=== PATIENT | male | born 1940 | race Caucasian/White ===

== ENCOUNTER 2016-05-02 16:26 | Emergency (ER) | payer MEDICARE, OTHER ==
[~2016-05-02] VITALS: Ht 180.3 cm; Wt 77.1 kg
[~2016-05-02 16:26] MED LIST: CALC1CAP13 PO; CHOL100011 PO; VITA1TAB19 PO; [UNRECOGNIZED DRUG - CODE] PO; [UNRECOGNIZED DRUG - REMARK]
--- NOTE | 2016-05-02 16:54 | NUR ---
ARRIVAL PT ARRIVED AMBULATORY TO ER 7 C/O COUGH THAT BEGAN LAST NIGHT. PT STATES HAD BRONCHITIS A FEW WEEKS AGO. NO ACUTE DISTRESS NOTED. EDP NOTIFIED OF PT ARRIVAL.
--- NOTE | 2016-05-02 17:10 | ER.PDOC ---
General Chief Complaint: Cough/Congestion Stated Complaint: COUGH Time seen by MD: 17:08 Source: patient Exam Limitations: no limitations History of Present Illness Initial Comments Cough for 2 days Timing/Duration: abrupt Severity: moderate Associated Symptoms: cough Prior symptoms/Treatment: Similar symptoms previous Recenly Seen Treated by Doctor Allergies: Coded Allergies: No Known Allergies (Unverified , 03/25/13) Home Meds Reported Medications Calcium/Mag Oxide/Vitamin D3 (Coral Calcium 1,000 Mg Cap)1 Each Capsule1 Each PO 12/17/13 Cholecalciferol (Vitamin D3) (Vitamin D)1,000 Unit Capsule1 Cap PO DAILY #30 CAP Ref 3 12/17/13 Vitamin B Complex (B Complex)1 Each Tablet1 Each PO DAILY 12/17/13 [honeyand vinegar] No Conflict Check1 Daily 12/17/13 Multivitamin W/Iron, Minerals ([facility])1 Each Tablet1 Each PO DAILY 12/17/13 Constitutional: no symptoms reported Respiratory: see HPI Cardiovascular: no symptoms reported Gastrointestinal: no symptoms reported Genitourinary: no symptoms reported Musculoskeletal: no symptoms reported Skin: no symptoms reported All Other Systems: Reviewed and Negative Past Medical History Medical History: COPD Surgical History: no surgical history Social History Smoking: non-smoker, quit greater than 1 year Alcohol Use: none Drug Use: none Physical Exam General Appearance: alert, no distress Nose: nose nml Throat: pharynx nml, airway nml Neck: nml inspection, supple Respiratory: no resp.distress, breath sounds nml Abdomen: non-tender, no organomegaly CVS: reg rate & rhythm, heart sounds nml Skin: color nml, no rash, warm/dry Extremities: non-tender, nml ROM, no pedal edema NEURO/PSYCH: oriented x 3, CN's nml as tested, motor nml, sensation nml, mood/ affect nml Departure Time of Disposition: 17:08 Impression: Primary Impression: Acute bronchitis Qualified Code: J20.9 - Acute bronchitis, unspecified Condition: Stable Referrals: PIPER TALAVERA (PCP) PRIMARY CARE PROVIDER Additional Instructions: Z pack Prednisone Mucinex DM OTC as directed Continue breathing treatments at home F/U with your PCP in 3-4 days MARIBEL MORA MD May 02, 2016 17:10
[2016-05-02 17:44] VITALS: BP 157/106
== END 2016-05-02 17:31 ==
LOC: ER 16:26
DX: J20.9 Acute bronchitis, unspecified (principal); J44.9 Chronic obstructive pulmonary disease, unspecified; Z87.891 Personal history of nicotine dependence; Z79.899 Other long term (current) drug therapy
CPT/HCPCS: 99283

== ENCOUNTER 2016-11-21 09:54 | Emergency (ER) | payer MEDICARE, OTHER ==
[~2016-11-21] VITALS: Ht 170.2 cm; Wt 74.8 kg
[2016-11-21 10:12] VITALS: BP 136/68
--- NOTE | 2016-11-21 10:14 | NUR ---
ARRIVAL PATIENT ARRIVED TO ED3 AMBULATORY, C/O OF FEVER, COUGH AND CONGESTION FOR THE PAST 4 DAYS, STATES "I GET THIS EVERY YEAR AND COME TO THE ED BEFORE I GET PNEUMONIA". HAS SEEN DOCTOR ABBY IN THE PAST, HERE FOR FURTHER EVAL BY EDP.
--- NOTE | 2016-11-21 10:27 | ER.PDOC ---
General Chief Complaint: Cough/Congestion Stated Complaint: FEVER,COUGH/CONGESTION Time seen by MD: 10:25 Source: patient Exam Limitations: no limitations History of Present Illness Initial Comments Cough and congestion for 4 days Timing/Duration: abrupt Severity: moderate Associated Symptoms: runny nose, cough Prior symptoms/Treatment: Similar symptoms previous Allergies: Coded Allergies: No Known Allergies (Unverified , 03/25/13) Home Meds Reported Medications Calcium/Mag Oxide/Vitamin D3 (CORAL CALCIUM 1,000 MG CAP) 1 Each Capsule, 1 EACH PO, CAPSULE 12/17/13 Cholecalciferol (Vitamin D3) (VITAMIN D) 1,000 Unit Capsule, 1 CAP PO DAILY, # 30 CAP 3 Refills 12/17/13 Vitamin B Complex (B COMPLEX) 1 Each Tablet, 1 EACH PO DAILY, TABLET 12/17/13 [honeyand vinegar] No Conflict Check, 1 DAILY 12/17/13 Multivitamin W/Iron, Minerals ([facility]) 1 Each Tablet, 1 EACH PO DAILY, TABLET 12/17/13 Constitutional: no symptoms reported EENTM: see HPI Respiratory: see HPI Cardiovascular: no symptoms reported Gastrointestinal: no symptoms reported All Other Systems: Reviewed and Negative Past Medical History Medical History: no pertinent history Surgical History: no surgical history Social History Smoking: non-smoker Alcohol Use: other Drug Use: none Physical Exam General Appearance: alert, no distress Nose: nose nml Neck: nml inspection, supple Respiratory: no resp.distress, breath sounds nml Abdomen: non-tender, no organomegaly CVS: reg rate & rhythm, heart sounds nml Skin: color nml, no rash, warm/dry Extremities: non-tender, nml ROM, no pedal edema NEURO/PSYCH: oriented x 3, CN's nml as tested, motor nml, sensation nml, mood/ affect nml Departure Time of Disposition: 10:26 Disposition: 01 HOME, SELF-CARE Impression: Primary Impression: Acute bronchitis Qualified Codes: J20.9 - Acute bronchitis, unspecified Condition: Stable Referrals: PIPER TALAVERA (PCP) PRIMARY CARE PROVIDER Additional Instructions: Z pack Medrol dose pack Mucinex DM OTC as directed F/U with your PCP next week MARIBEL MORA MD Nov 21, 2016 10:27
== END 2016-11-21 10:32 | disposition home or self-care (01) ==
LOC: ER 09:54
DX: J20.9 Acute bronchitis, unspecified (principal); Z79.899 Other long term (current) drug therapy
CPT/HCPCS: 99283

== ENCOUNTER 2017-12-16 07:56 | Emergency (ER) | payer MEDICARE, OTHER ==
[~2017-12-16] VITALS: Ht 180.3 cm; Wt 77.1 kg
--- NOTE | 2017-12-16 08:03 | ER.PDOC ---
General Chief Complaint: Requesting Medical Care Stated Complaint: UPPER RESP Time seen by MD: 08:03 Source: patient Exam Limitations: no limitations History of Present Illness Initial Comments Pt started with cough and phlegm, six days ago, no better Timing/Duration: gradual Severity: mild Associated Symptoms: cough, productive cough, mild SOB Allergies: Coded Allergies: No Known Allergies (Unverified , 03/25/13) Home Meds Reported Medications Calcium/Mag Oxide/Vitamin D3 (CORAL CALCIUM 1,000 MG CAP) 1 Each Capsule, 1 EACH PO, CAPSULE 12/17/13 Cholecalciferol (Vitamin D3) (VITAMIN D) 1,000 Unit Capsule, 1 CAP PO DAILY, # 30 CAP 3 Refills 12/17/13 Vitamin B Complex (B COMPLEX) 1 Each Tablet, 1 EACH PO DAILY, TABLET 12/17/13 [honeyand vinegar] No Conflict Check, 1 DAILY 12/17/13 Multivitamin W/Iron, Minerals ([facility]) 1 Each Tablet, 1 EACH PO DAILY, TABLET 12/17/13 Constitutional: no symptoms reported EENTM: no symptoms reported Respiratory: see HPI Cardiovascular: no symptoms reported Gastrointestinal: no symptoms reported Genitourinary: no symptoms reported Musculoskeletal: no symptoms reported Skin: no symptoms reported Psychiatric/Neurological: no symptoms reported Endocrine: no symptoms reported Hematologic/Lymphatic: no symptoms reported Past Medical History Surgical History: no surgical history Social History Drug Use: none Physical Exam General Appearance: alert, no distress Eye: eyes nml inspection, lids & conjunct. nml, PERRL, no nystagmus Ear: ear nml Nose: nose nml Throat: pharynx nml, airway nml Neck: nml inspection, supple Respiratory: rhonchi (bilaterally) Abdomen: non-tender, no organomegaly CVS: reg rate & rhythm, heart sounds nml Skin: color nml, no rash, warm/dry Extremities: non-tender, nml ROM, no pedal edema NEURO/PSYCH: oriented x 3, CN's nml as tested, motor nml, sensation nml, mood/ affect nml Departure Time of Disposition: 08:32 Disposition: 01 HOME, SELF-CARE Impression: Primary Impression: Acute bronchitis Condition: Stable Referrals: PIPER TALAVERA (PCP) PRIMARY CARE PROVIDER Duration or Time Spent with Pa: MARC KLEIN MD Dec 16, 2017 08:03
[2017-12-16 08:15] VITALS: BP 170/117
[2017-12-16 08:39] VITALS: BP 162/105
[2017-12-16 08:45] VITALS: BP 162/105
== END 2017-12-16 08:41 | disposition home or self-care (01) ==
LOC: ER 07:56
DX: J20.9 Acute bronchitis, unspecified (principal); Z79.899 Other long term (current) drug therapy
CPT/HCPCS: 99283

== ENCOUNTER 2018-06-30 08:53 | Emergency (ER) | payer MEDICARE ==
[~2018-06-30] VITALS: Ht 180.3 cm; Wt 81.6 kg
--- NOTE | 2018-06-30 08:59 | NUR ---
ARRIVAL PT C/O COUGH, CONGESTION, LOW GRADE TEMP X2 DAYS. TAKING MUCCINEX AT HOME. BEDSIDE MONITOR ON, REPORT GIVEN.
[2018-06-30 09:07] VITALS: BP 168/83
--- NOTE | 2018-06-30 09:14 | ER.PDOC ---
General Chief Complaint: Cough/Congestion Stated Complaint: BRONCHITIS Time seen by MD: 09:12 Source: patient Exam Limitations: no limitations History of Present Illness Initial Comments Cough and congestion for the past few days. Timing/Duration: gradual Severity: moderate Associated Symptoms: runny nose, cough Prior symptoms/Treatment: Similar symptoms previous Allergies: Coded Allergies: No Known Allergies (Unverified , 03/25/13) Home Meds Reported Medications Calcium/Mag Oxide/Vitamin D3 (CORAL CALCIUM 1,000 MG CAP) 1 Each Capsule, 1 EACH PO, CAPSULE 12/17/13 Cholecalciferol (Vitamin D3) (VITAMIN D) 1,000 Unit Capsule, 1 CAP PO DAILY, #30 CAP 3 Refills 12/17/13 Vitamin B Complex (B COMPLEX) 1 Each Tablet, 1 EACH PO DAILY, TABLET 12/17/13 [honeyand vinegar] No Conflict Check, 1 DAILY 12/17/13 Multivitamin W/Iron, Minerals ([facility]) 1 Each Tablet, 1 EACH PO DAILY, TABLET 12/17/13 Constitutional: no symptoms reported EENTM: see HPI Respiratory: see HPI Cardiovascular: no symptoms reported Gastrointestinal: no symptoms reported Genitourinary: no symptoms reported All Other Systems: Reviewed and Negative Past Medical History Medical History: other Surgical History: no surgical history Social History Smoking: cigarettes, less than 1 pack/day Alcohol Use: none Drug Use: none Physical Exam General Appearance: alert, no distress Nose: nose nml Throat: pharynx nml, airway nml Neck: nml inspection, supple Respiratory: no resp.distress, breath sounds nml Abdomen: non-tender, no organomegaly CVS: reg rate & rhythm, heart sounds nml Skin: color nml, no rash, warm/dry Extremities: non-tender, nml ROM, no pedal edema NEURO/PSYCH: oriented x 3, CN's nml as tested, motor nml, sensation nml, mood/affect nml Results/Orders Results/Orders Vital Signs Date Time Temp Pulse Resp B/P (MAP) Pulse Ox O2 Delivery O2 Flow Rate FiO2 06/30/18 09:07 98.0 69 14 168/83 (111) 95 Room Air 98.0 06/30/18 09:04 98.0 69 14 98.0 06/30/18 09:04 98.0 69 14 95 Room Air 98.0 Departure Time of Disposition: 09:13 Disposition: 01 HOME, SELF-CARE Impression: Primary Impression: Acute bronchitis Condition: Stable Referrals: PIPER TALAVERA (PCP) PRIMARY CARE PROVIDER Additional Instructions: Z pack Medrol dose pack Mucinex DM OTC as directed F/U with PCP in 1 week Duration or Time Spent with Pa: 30 mins Problem Qualifiers Primary Impression: Acute bronchitis Bronchitis organism: unspecified organism Qualified Codes: J20.9 - Acute bronchitis, unspecified MARIBEL MORA MD June 30, 2018 09:14
--- NOTE | 2018-06-30 09:27 | NUR ---
DISMISSAL PT DISCHARGED IN STABLE CONDITION.
[2018-06-30 09:39] VITALS: BP 168/83
== END 2018-06-30 09:27 | disposition home or self-care (01) ==
LOC: ER 08:53
DX: J20.9 Acute bronchitis, unspecified (principal); Z79.899 Other long term (current) drug therapy
CPT/HCPCS: 99283

== ENCOUNTER 2018-11-03 08:27 | Emergency (ER) | payer MEDICARE ==
[~2018-11-03] VITALS: Ht 182.9 cm; Wt 81.6 kg
[2018-11-03 08:44] VITALS: BP 151/80
--- NOTE | 2018-11-03 08:56 | ER.PDOC ---
General Chief Complaint: Cough/Congestion Stated Complaint: POSSIBLE BRONCHITIS Time seen by MD: 08:49 Source: patient Exam Limitations: no limitations History of Present Illness Initial Comments Cough with white expectoration, started yesterday, no fever, occasional SOB, no CP Timing/Duration: gradual Severity: mild Associated Symptoms: cough Worsen By: deep breathing Prior symptoms/Treatment: Similar symptoms previous Allergies: Coded Allergies: No Known Allergies (Unverified , 03/25/13) Home Meds Reported Medications Calcium/Mag Oxide/Vitamin D3 (CORAL CALCIUM 1,000 MG CAP) 1 Each Capsule, 1 EACH PO, CAPSULE 12/17/13 Cholecalciferol (Vitamin D3) (VITAMIN D) 1,000 Unit Capsule, 1 CAP PO DAILY, #30 CAP 3 Refills 12/17/13 Vitamin B Complex (B COMPLEX) 1 Each Tablet, 1 EACH PO DAILY, TABLET 12/17/13 [honeyand vinegar] No Conflict Check, 1 DAILY 12/17/13 Multivitamin W/Iron, Minerals ([facility]) 1 Each Tablet, 1 EACH PO DAILY, TABLET 12/17/13 Respiratory: see HPI All Other Systems: Reviewed and Negative Past Medical History Medical History: no pertinent history Surgical History: no surgical history Social History Smoking: non-smoker, quit greater than 1 year Alcohol Use: none Drug Use: none Physical Exam General Appearance: alert, no distress Eye: eyes nml inspection, lids & conjunct. nml, PERRL, no nystagmus Ear: ear nml Nose: nose nml Throat: pharynx nml, airway nml Neck: nml inspection, supple Respiratory: no resp.distress, rhonchi (scattered) Abdomen: non-tender, no organomegaly CVS: reg rate & rhythm, heart sounds nml Skin: color nml, no rash, warm/dry Extremities: non-tender, nml ROM, no pedal edema NEURO/PSYCH: oriented x 3, CN's nml as tested, motor nml, sensation nml, mood/affect nml Results/Orders Results/Orders Vital Signs Date Time Temp Pulse Resp B/P (MAP) Pulse Ox O2 Delivery O2 Flow Rate FiO2 11/03/18 08:44 97.8 65 16 11/03/18 08:44 97.8 65 17 151/80 (103) 96 Room Air 11/03/18 08:37 97.8 65 17 96 Room Air Departure Time of Disposition: 08:56 Disposition: 01 HOME, SELF-CARE Impression: Primary Impression: Acute bronchitis Condition: Stable Patient Instructions: Bronchitis, [id number] Referrals: PIPER TALAVERA (PCP) PRIMARY CARE PROVIDER Duration or Time Spent with Pa: 10 MARC ROSS MD Nov 03, 2018 08:56
== END 2018-11-03 09:03 | disposition home or self-care (01) ==
LOC: ER 08:27
DX: J20.9 Acute bronchitis, unspecified (principal); Z79.899 Other long term (current) drug therapy; Z87.891 Personal history of nicotine dependence
CPT/HCPCS: 99283

== ENCOUNTER 2018-12-19 08:30 | Emergency (ER) | payer MEDICARE ==
[~2018-12-19] VITALS: Ht 180.3 cm; Wt 81.6 kg
[2018-12-19 08:46] VITALS: BP 176/79
--- NOTE | 2018-12-19 08:47 | ER.PDOC ---
General Chief Complaint: Requesting Medical Care Stated Complaint: POSSIBLE BRONCHITIS Time seen by MD: 08:40 Source: patient Exam Limitations: no limitations History of Present Illness Initial Comments Pt attended a concert where there was smoking, started with cough and white expectoration 1 week ago Timing/Duration: gradual Severity: moderate Associated Symptoms: cough, productive cough, mild SOB Allergies: Coded Allergies: No Known Allergies (Unverified , 03/25/13) Home Meds Reported Medications Calcium/Mag Oxide/Vitamin D3 (CORAL CALCIUM 1,000 MG CAP) 1 Each Capsule, 1 EACH PO, CAPSULE 12/17/13 Cholecalciferol (Vitamin D3) (VITAMIN D) 1,000 Unit Capsule, 1 CAP PO DAILY, #30 CAP 3 Refills 12/17/13 Vitamin B Complex (B COMPLEX) 1 Each Tablet, 1 EACH PO DAILY, TABLET 12/17/13 [honeyand vinegar] No Conflict Check, 1 DAILY 12/17/13 Multivitamin W/Iron, Minerals ([facility]) 1 Each Tablet, 1 EACH PO DAILY, TABLET 12/17/13 Respiratory: see HPI All Other Systems: Reviewed and Negative Past Medical History Medical History: no pertinent history Surgical History: no surgical history Social History Drug Use: none Physical Exam General Appearance: alert, no distress Eye: eyes nml inspection, lids & conjunct. nml, PERRL, no nystagmus Ear: ear nml Nose: nose nml Throat: pharynx nml, airway nml Neck: nml inspection, supple Respiratory: no resp.distress, breath sounds nml Abdomen: non-tender, no organomegaly CVS: reg rate & rhythm, heart sounds nml Skin: color nml, no rash, warm/dry Extremities: non-tender, nml ROM, no pedal edema NEURO/PSYCH: oriented x 3, CN's nml as tested, motor nml, sensation nml, mood/affect nml Departure Time of Disposition: 08:49 Disposition: 01 HOME, SELF-CARE Impression: Primary Impression: Acute bronchitis Condition: Stable Patient Instructions: Acute Bronchitis, [id number] Referrals: PIPER TALAVERA (PCP) PRIMARY CARE PROVIDER Duration or Time Spent with Pa: MARC SULLIVAN MD Dec 19, 2018 08:47
== END 2018-12-19 08:53 | disposition home or self-care (01) ==
LOC: ER 08:30
DX: J20.9 Acute bronchitis, unspecified (principal); Z79.899 Other long term (current) drug therapy
CPT/HCPCS: 99283

== ENCOUNTER 2019-12-28 08:47 | Emergency (ER) | payer MEDICARE ==
[~2019-12-28] VITALS: Ht 180.3 cm; Wt 81.6 kg
[2019-12-28 09:02] VITALS: BP 163/61
--- NOTE | 2019-12-28 09:09 | ER.PDOC ---
General Chief Complaint: Requesting Medical Care Stated Complaint: COUGH/CONGESTION Time seen by MD: 09:02 Source: patient Exam Limitations: no limitations History of Present Illness Initial Comments Mr. Jorge c/o cough/congestion x 2 days. He states he gets bronchitis every year and Zpak + steroids always knocks it out. He as covid tested yesterday and it was negative. He denies SOB or fever. Timing/Duration: gradual Severity: mild Associated Symptoms: cough Prior symptoms/Treatment: Similar symptoms previous (bronchitis yearly) Allergies: Coded Allergies: No Known Allergies (Unverified , 03/25/13) Home Meds Reported Medications Calcium/Mag Oxide/Vitamin D3 (CORAL CALCIUM 1,000 MG CAP) 1 Each Capsule, 1 EACH PO, CAPSULE 12/17/13 Cholecalciferol (Vitamin D3) (VITAMIN D) 1,000 Unit Capsule, 1 CAP PO DAILY, #30 CAP 3 Refills 12/17/13 Vitamin B Complex (B COMPLEX) 1 Each Tablet, 1 EACH PO DAILY, TABLET 12/17/13 [honeyand vinegar] No Conflict Check, 1 DAILY 12/17/13 Multivitamin W/Iron, Minerals ([facility]) 1 Each Tablet, 1 EACH PO DAILY, TABLET 12/17/13 Constitutional: no symptoms reported EENTM: no symptoms reported Respiratory: cough Cardiovascular: no symptoms reported Gastrointestinal: no symptoms reported Genitourinary: no symptoms reported Musculoskeletal: no symptoms reported Skin: no symptoms reported Psychiatric/Neurological: no symptoms reported All Other Systems: Reviewed and Negative Past Medical History Medical History: no pertinent history Surgical History: no surgical history Family History Significant Family History: no pertinent family hx Social History Smoking: cigarettes (1 pack per 2 months) Alcohol Use: none Drug Use: none Physical Exam General Appearance: alert, no distress Eye: eyes nml inspection, lids & conjunct. nml, PERRL, no nystagmus Respiratory: no resp.distress, breath sounds nml Abdomen: non-tender, no organomegaly CVS: reg rate & rhythm, heart sounds nml Skin: color nml, no rash, warm/dry Extremities: non-tender, nml ROM, no pedal edema NEURO/PSYCH: oriented x 3, motor nml ER DEPART Departure Time of Disposition: 09:12 Disposition: 01 HOME, SELF-CARE Impression: Primary Impression: Acute bronchitis Condition: Stable Patient Instructions: Acute Bronchitis Referrals: PIPER TALAVERA (PCP) PRIMARY CARE PROVIDER Additional Instructions: Return to ER if you experience any difficulty breathing or swallowing, or for any emergent concerns. Take antibiotics and steroids as prescribed until all gone. Follow up with your doctor next week for reevaluation. Duration or Time Spent with Pa: 20 min Problem Qualifiers Primary Impression: Acute bronchitis Bronchitis organism: unspecified organism Qualified Codes: J20.9 - Acute bronchitis, unspecified WILFRIDO MIRANDA DO Dec 28, 2019 09:09
[2019-12-28 09:21] VITALS: BP 142/80
== END 2019-12-28 09:24 | disposition home or self-care (01) ==
LOC: ER 08:47
DX: J20.9 Acute bronchitis, unspecified (principal); F17.210 Nicotine dependence, cigarettes, uncomplicated; Z79.899 Other long term (current) drug therapy
CPT/HCPCS: 99283

== ENCOUNTER 2020-05-16 08:51 | Emergency (ER) | payer MEDICARE ==
[~2020-05-16] VITALS: Ht 175.3 cm; Wt 86.2 kg
[2020-05-16 09:05] VITALS: BP 152/75
[2020-05-16 09:15] VITALS: BP 152/75
[2020-05-16] MEDS: DECADRON IH STA (09:22)
[2020-05-16] MEDS: DUO 0.5-3(2.5) MG/3 ML IH STA (09:22)
[2020-05-16] MEDS ORDERED: DUO 0.5-3(2.5) MG/3 ML IH ONE (09:23)
[2020-05-16] MEDS ORDERED: DECADRON ONE (09:23)
--- NOTE | 2020-05-16 09:26 | ER.PDOC ---
General Chief Complaint: Cough/Congestion Stated Complaint: COUGH/CONGESTION Time seen by MD: 09:23 Source: patient Exam Limitations: no limitations History of Present Illness Initial Comments Cough and chest congestion for 3 days. No fever or chills. Patient is prone to having bronchitis. He tells me that he is having 1 of such episodes. No chest pain or shortness of breath. Timing/Duration: gradual Severity: moderate Associated Symptoms: cough Prior symptoms/Treatment: Similar symptoms previous, Recenly Seen, Treated by Doctor Allergies: Coded Allergies: No Known Allergies (Unverified , 03/25/13) Home Meds Reported Medications Calcium/Mag Oxide/Vitamin D3 (CORAL CALCIUM 1,000 MG CAP) 1 Each Capsule, 1 EACH PO, CAPSULE 12/17/13 Cholecalciferol (Vitamin D3) (VITAMIN D) 1,000 Unit Capsule, 1 CAP PO DAILY, #30 CAP 3 Refills 12/17/13 Vitamin B Complex (B COMPLEX) 1 Each Tablet, 1 EACH PO DAILY, TABLET 12/17/13 [honeyand vinegar] No Conflict Check, 1 DAILY 12/17/13 Multivitamin W/Iron, Minerals ([facility]) 1 Each Tablet, 1 EACH PO DAILY, TABLET 12/17/13 Constitutional: no symptoms reported EENTM: no symptoms reported Respiratory: see HPI Cardiovascular: no symptoms reported Gastrointestinal: no symptoms reported Genitourinary: no symptoms reported All Other Systems: Reviewed and Negative Past Medical History Medical History: hypertension Surgical History: no surgical history Family History Significant Family History: no pertinent family hx Social History Alcohol Use: none Drug Use: none Physical Exam General Appearance: alert, no distress Nose: nose nml Throat: pharynx nml, airway nml Neck: nml inspection, supple Respiratory: no resp.distress, wheezes Abdomen: non-tender, no organomegaly CVS: reg rate & rhythm, heart sounds nml Skin: color nml, no rash, warm/dry Extremities: non-tender, nml ROM, no pedal edema NEURO/PSYCH: oriented x 3, CN's nml as tested, motor nml, sensation nml, mood/affect nml Results/Orders Results/Orders Vital Signs Date Time Temp Pulse Resp B/P (MAP) Pulse Ox O2 Delivery O2 Flow Rate FiO2 05/16/20 09:15 98.1 87 18 152/75 (100) 97 Room Air 05/16/20 09:05 98.1 87 18 97 05/16/20 09:05 98.1 87 18 Progress Progress Wheezes resolved after patient had a breathing treatment. He is feeling better to go home. ER DEPART Departure Time of Disposition: 09:25 Disposition: 01 HOME, SELF-CARE Impression: Primary Impression: Acute bronchitis Condition: Improved Referrals: PIPER TALAVERA (PCP) PRIMARY CARE PROVIDER Additional Instructions: Z-Germain Medrol Dosepak Continue with a breathing treatment at home Follow-up with your PCP in 1 week Return to ED if worsening symptoms or concerns Duration or Time Spent with Pa: 20 min Problem Qualifiers Primary Impression: Acute bronchitis Bronchitis organism: unspecified organism Qualified Codes: J20.9 - Acute bronchitis, unspecified MARIBEL MORA MD May 16, 2020 09:26
[2020-05-16] MEDS ORDERED: WATER 20 ML ONE (09:27)
[2020-05-16] MEDS ORDERED: SOLU-MEDROL ONE (09:27)
[2020-05-16] MEDS: SOLU-MEDROL IM STA (09:30)
== END 2020-05-16 09:36 | disposition home or self-care (01) ==
LOC: ER 08:51
DX: J20.9 Acute bronchitis, unspecified (principal); I10 Essential (primary) hypertension
CPT/HCPCS: 94640; 96372; 99283; J1100; J2930; J7620; A4216

== ENCOUNTER 2020-06-24 11:27 | Emergency (ER) | payer OTHER, MEDICARE ==
[~2020-06-24] VITALS: Ht 180.3 cm; Wt 83.9 kg
--- NOTE | 2020-06-24 11:33 | NUR ---
ARRIVAL PT ARRIVED TO ED WITH C/O NECK PAIN AND DIZZINESS WHEN BENDING OVER SINCE WEDNESDAY. PT STATES WHILE CLOSING THE DUMPSTER LID ON WEDNESDAY THE WIND CAUGHT IT JERKING PTS ARM AND NECK. BEDSIDE MONITORS APPLIED. VITAL SIGNS STABLE. BED IN LOW LOCKED POSITION.
[2020-06-24 11:38] VITALS: BP 159/86
[2020-06-24] MEDS ORDERED: ANTIVERT PO STA (11:43)
[2020-06-24] MEDS ORDERED: ANTIVERT ONE (11:49)
--- NOTE | 2020-06-24 11:52 | ER.PDOC ---
General Chief Complaint: Neck/Upper back Pain Stated Complaint: DIZZINESS Time seen by MD: 11:11 Source: patient Exam Limitations: no limitations History of Present Illness Initial Comments OCCURED AFTER A JERKY MOVEMENT YESTERDAY Occurred: just prior to arrival, yesterday Severity: mild Associated Symptoms: sense of movement, spinning Decreased Ability to Stand: off balance Usually: walks w/o assistance Worsened By: changing position, movement of head, standing postion Allergies: Coded Allergies: No Known Allergies (Unverified , 03/25/13) Home Meds Reported Medications Calcium/Mag Oxide/Vitamin D3 (CORAL CALCIUM 1,000 MG CAP) 1 Each Capsule, 1 EACH PO, CAPSULE 12/17/13 Cholecalciferol (Vitamin D3) (VITAMIN D) 1,000 Unit Capsule, 1 CAP PO DAILY, #30 CAP 3 Refills 12/17/13 Vitamin B Complex (B COMPLEX) 1 Each Tablet, 1 EACH PO DAILY, TABLET 12/17/13 [honeyand vinegar] No Conflict Check, 1 DAILY 12/17/13 Multivitamin W/Iron, Minerals ([facility]) 1 Each Tablet, 1 EACH PO DAILY, TABLET 12/17/13 Past Medical History Medical History: hypertension Surgical History: no surgical history Social History Alcohol Use: none Drug Use: none Reviewed Nursing Reviewed: Vital Signs, Abn. Noted Review of Systems All Other Systems: Reviewed and Negative Physical Exam General Appearance: alert, no distress EENT: nml eye inspection, PERRL, no nystagmus, nml ENT inspection, pharynx nml, TM's nml Neck: supple Respiratory: no resp distress, breath sounds nml CVS: reg rate & rhythm, heart sounds.nml Abdomen: non-tender, no organomegaly, no distention Skin: color nml, no rash, warm/dry Extremities: non-tender, nml ROM, no pedal edema Neuro/Psych: nml orientation, nml speech/cognition, nml mood/affect Cranial Nerves: nml as tested, no evidence of acute CVA Cerebellar: nml as tested Sensorimotor: nml motor, nml sensation Results/Orders Results/Orders Orders - LASHAWN MORALES MD Ekg-Routine (06/24/20 11:43) Meclizine Hcl (Antivert) (06/24/20 11:43) Vital Signs Date Time Temp Pulse Resp B/P (MAP) Pulse Ox O2 Delivery O2 Flow Rate FiO2 06/24/20 11:38 97.9 85 18 159/86 (110) 97 Room Air 06/24/20 11:38 97.9 85 18 97 06/24/20 11:38 97.9 85 18 ER DEPART Departure Time of Disposition: 11:55 Disposition: 01 HOME, SELF-CARE Impression: Primary Impression: BPPV (benign paroxysmal positional vertigo) Condition: Improved Referrals: PIPER TALAVERA (PCP) PRIMARY CARE PROVIDER Duration or Time Spent with Pa: KevanM LASHAWN MORALES MD June 24, 2020 11:51
--- NOTE | 2020-06-24 12:05 | PCM.EKG ---
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
== END 2020-06-24 12:13 | disposition home or self-care (01) ==
LOC: ER 11:27
DX: H81.10 Benign paroxysmal vertigo, unspecified ear (principal); I10 Essential (primary) hypertension
CPT/HCPCS: 93005; 99283; J8597

== ENCOUNTER 2021-01-21 11:21 | Emergency (ER) | payer MEDICARE ==
[~2021-01-21] VITALS: Ht 180.3 cm; Wt 83.9 kg
[2021-01-21 11:47] VITALS: BP 156/71
--- NOTE | 2021-01-21 11:52 | NUR ---
ARRIVAL PATIENT ARRIVED TO ED4 AMBULATORY, C/O SHORTNESS OF BREATH FOR THE PAST 2 DAYS, DYSPNEA CONTINUES AND PATIENT DECIDED TO COME TO THE ED FOR EVAL, VITAL SIGNS OBTAINED AND DOCTOR DAVEY TO THE TO SEE PATIENT.
--- NOTE | 2021-01-21 11:57 | ER.PDOC ---
General Chief Complaint: Dyspnea/Respdistress Stated Complaint: CONGESTED,SOB Time seen by MD: 11:49 Source: patient Exam Limitations: no limitations History of Present Illness Initial Comments This is an 80-year-old man who comes to the emergency department with "bronchitis". He states his symptoms started yesterday. He denies any fever, no body aches. He has had a prior history of bronchitis in the past. No loss of sense of taste or smell. Allergies: Coded Allergies: No Known Allergies (Unverified , 03/25/13) Home Meds Reported Medications Calcium/Mag Oxide/Vitamin D3 (CORAL CALCIUM 1,000 MG CAP) 1 Each Capsule, 1 EACH PO, CAPSULE 12/17/13 Cholecalciferol (Vitamin D3) (VITAMIN D) 1,000 Unit Capsule, 1 CAP PO DAILY, #30 CAP 3 Refills 12/17/13 Vitamin B Complex (B COMPLEX) 1 Each Tablet, 1 EACH PO DAILY, TABLET 12/17/13 [honeyand vinegar] No Conflict Check, 1 DAILY 12/17/13 Multivitamin W/Iron, Minerals (CENTRAL CRISTIAN FOR SENIORS) 1 Each Tablet, 1 EACH PO DAILY, TABLET 12/17/13 Constitutional: denies no symptoms reported, denies see HPI, denies chills, denies diaphoresis, denies fever, denies malaise, denies weakness, denies other EENTM: denies no symptoms reported, denies see HPI, denies eye pain, denies blurred vision, denies tearing, denies double vision, denies ear pain, denies ear discharge, denies nose pain, denies nose congestion, denies throat pain, denies throat swelling, denies mouth pain, denies mouth swelling, denies other Respiratory: denies no symptoms reported, denies see HPI, denies cough, denies orthopnea, denies shortness of breath, denies SOB with exertion, denies SOB at rest, denies stridor, denies wheezing, denies other Cardiovascular: denies no symptoms reported, denies see HPI, denies chest pain, denies edema, denies irregular heart rate, denies lightheadedness, denies palpitations, denies syncope, denies other Gastrointestinal: denies no symptoms reported, denies see HPI, denies abdomen distended, denies abdominal pain, denies blood streaked bowels, denies constipated, denies diarrhea, denies difficulty swallowing, denies nausea, denies poor appetite, denies poor fluid intake, denies rectal bleeding, denies vomiting, denies other Genitourinary: denies no symptoms reported, denies see HPI, denies burning, denies dysuria, denies discharge, denies frequency, denies flank pain, denies hematuria, denies incontinence, denies pain, denies urgency, denies other Musculoskeletal: denies no symptoms reported, denies see HPI, denies back pain, denies gout, denies joint pain, denies joint swelling, denies muscle pain, denies muscle stiffness, denies neck pain, denies other Skin: denies no symptoms reported, denies see HPI, denies change in color, denies change in hair/nails, denies dryness, denies lesions, denies lumps, denies rash, denies other Psychiatric/Neurological: denies no symptoms reported, denies see HPI, denies anxiety, denies depressed, denies emotional problems, denies headache, denies nu mbness, denies paresthesia, denies pre-existing deficit, denies seizure, denies tingling, denies tremors, denies weakness, denies other Endocrine: denies no symptoms reported, denies see HPI, denies excessive sweating, denies flushing, denies intolerance to cold, denies intolerance to heat, denies increased hunger, denies increased thrist, denies increased urine, denies unexplained weight gain, denies unexplaned weight loss, denies other Hematologic/Lymphatic: denies no symptoms reported, denies see HPI, denies anemia, denies blood clots, denies easy bleeding, denies easy bruising, denies swollen glands, denies other All Other Systems: Reviewed and Negative Past Medical History Medical History: hypertension Surgical History: no surgical history Social History Alcohol Use: none Drug Use: none Physical Exam General Appearance: alert, no distress Eye: eyes nml inspection, lids & conjunct. nml, PERRL, no nystagmus Ear: ear nml Nose: nose nml Throat: pharynx nml, airway nml Neck: nml inspection, supple Respiratory: no resp.distress, rales (Crackles in the bases bilaterally) Abdomen: non-tender, no organomegaly CVS: reg rate & rhythm, heart sounds nml Skin: color nml, no rash, warm/dry Extremities: non-tender, nml ROM, no pedal edema NEURO/PSYCH: oriented x 3, CN's nml as tested, motor nml, sensation nml, mood/affect nml Results/Orders Results/Orders Orders - RIRI MARISCAL MD Covid19 Antigen Keeley Farhana (01/21/21 11:52) Xr Chest 1v (01/21/21 11:52) Vital Signs Date Time Temp Pulse Resp B/P (MAP) Pulse Ox O2 Delivery O2 Flow Rate FiO2 01/21/21 11:47 99.5 99 18 01/21/21 11:47 99.5 99 18 90 01/21/21 11:47 99.5 99 18 156/71 (99) 90 Room Air Laboratory Tests Test 01/21/21 11:50 SARS-CoV-2 Antigen (Rapid) NEGATIVE (NEGATIVE) Progress Progress FINDINGS: LUNGS/PLEURA:Interstitial prominence throughout the bilateral hemithoraces may reflect senescent changes or underlying chronic lung disease such as COPD/emphysema. This is fairly similar to the previous study. No confluent airspace consolidation, pleural effusion or pneumothorax is identified. VASCULATURE:Normal. Unremarkable pulmonary vasculature. CARDIAC:Normal. No cardiac silhouette abnormality or cardiomegaly. MEDIASTINUM:Mediastinal contours appear within acceptable limits with calcifications of the aorta. BONES:Degenerative changes of the spine. OTHER:Negative. CONCLUSION: 1. Stable chest with senescent changes or potential underlying chronic lung disease such as COPD/emphysema. No superimposed acute cardiopulmonary abnormality is identified. Dictated by: George Shea M.D. On 01/21/2021 at 12:31 PM ER DEPART Departure Time of Disposition: 12:40 Disposition: 01 HOME / SELF CARE / HOMELESS Impression: Primary Impression: Bronchitis Condition: Stable Patient Instructions: Acute Bronchitis Referrals: PIPER TALAVERA (PCP) PRIMARY CARE PROVIDER Additional Instructions: Take medications as prescribed, return to the emergency department if you worsen in any way. Comments Prescription for azithromycin, prednisone, and an albuterol inhaler. Duration or Time Spent with Pa: Unknown RIRI MARISCAL MD Jan 21, 2021 11:56
--- NOTE | 2021-01-21 12:33 | DIREP ---
PROCEDURE:CHEST 1 VIEW COMPARISON:[facility], CR, XRAY CHEST 2 VWS, 04/14/2016, 12:46 PM. INDICATIONS:cough FINDINGS: LUNGS/PLEURA:Interstitial prominence throughout the bilateral hemithoraces may reflect senescent changes or underlying chronic lung disease such as COPD/emphysema. This is fairly similar to the previous study. No confluent airspace consolidation, pleural effusion or pneumothorax is identified. VASCULATURE:Normal. Unremarkable pulmonary vasculature. CARDIAC:Normal. No cardiac silhouette abnormality or cardiomegaly. MEDIASTINUM:Mediastinal contours appear within acceptable limits with calcifications of the aorta. BONES:Degenerative changes of the spine. OTHER:Negative. CONCLUSION: 1. Stable chest with senescent changes or potential underlying chronic lung disease such as COPD/emphysema. No superimposed acute cardiopulmonary abnormality is identified. Dictated by: George Shea M.D. On 01/21/2021 at 12:31 PM
[2021-01-21 12:48] VITALS: BP 129/80
== END 2021-01-21 12:55 | disposition home or self-care (01) ==
LOC: ER 11:21
DX: J40 Bronchitis, not specified as acute or chronic (principal); I10 Essential (primary) hypertension; Z20.822 Contact with and (suspected) exposure to COVID-19
CPT/HCPCS: 71045; 87426; 99284

== ENCOUNTER 2021-03-03 10:13 | Emergency (ER) | payer MEDICARE ==
[~2021-03-03] VITALS: Ht 180.3 cm; Wt 81.6 kg
--- NOTE | 2021-03-03 10:26 | NUR ---
ARRIVAL PRESENTED TO ED AMBULATORY WITH C/O "BRONCHITIS X3 MONTHS THAT HAS NOT IMPROVED." VS OBTAINED. DR. MARISCAL NOTIFIED OF PAITENT ARRIVAL.
[2021-03-03 10:33] VITALS: BP 151/75
--- NOTE | 2021-03-03 10:36 | ER.PDOC ---
General Chief Complaint: Requesting Medical Care Stated Complaint: BRONCHITIS Time seen by MD: 10:29 Source: patient Exam Limitations: no limitations History of Present Illness Initial Comments This is an 80-year-old man who comes emergency department complaint of a cough for the past 2 months. He states he has also had some pain in his chest with his cough. He was seen 1 month ago and was placed on albuterol but states his symptoms have returned. He still continues to smoke. He denies any fever or chills, his past history is significant for hypertension. Severity: moderate Associated Symptoms: cough, productive cough, hurts to breath Worsen By: deep breathing Prior symptoms/Treatment: Similar symptoms previous Allergies: Coded Allergies: No Known Allergies (Unverified , 03/25/13) Home Meds Reported Medications Calcium/Mag Oxide/Vitamin D3 (CORAL CALCIUM 1,000 MG CAP) 1 Each Capsule, 1 EACH PO, CAPSULE 12/17/13 Cholecalciferol (Vitamin D3) (VITAMIN D) 1,000 Unit Capsule, 1 CAP PO DAILY, #30 CAP 3 Refills 12/17/13 Vitamin B Complex (B COMPLEX) 1 Each Tablet, 1 EACH PO DAILY, TABLET 12/17/13 [honeyand vinegar] No Conflict Check, 1 DAILY 12/17/13 Multivitamin W/Iron, Minerals (CENTRAL CRISTIAN FOR SENIORS) 1 Each Tablet, 1 EACH PO DAILY, TABLET 12/17/13 Constitutional: denies no symptoms reported, denies see HPI, denies chills, denies diaphoresis, denies fever, denies malaise, denies weakness, denies other EENTM: denies no symptoms reported, denies see HPI, denies eye pain, denies blurred vision, denies tearing, denies double vision, denies ear pain, denies ear discharge, denies nose pain, denies nose congestion, denies throat pain, denies throat swelling, denies mouth pain, denies mouth swelling, denies other Respiratory: denies no symptoms reported, denies see HPI; cough; denies orthopnea; shortness of breath; denies SOB with exertion, denies SOB at rest, denies stridor, denies wheezing, denies other Cardiovascular: denies no symptoms reported, denies see HPI, denies chest pain, denies edema, denies irregular heart rate, denies lightheadedness, denies palpitations, denies syncope, denies other Gastrointestinal: denies no symptoms reported, denies see HPI, denies abdomen distended, denies abdominal pain, denies blood streaked bowels, denies constipated, denies diarrhea, denies difficulty swallowing, denies nausea, denies poor appetite, denies poor fluid intake, denies rectal bleeding, denies vomiting, denies other Genitourinary: denies no symptoms reported, denies see HPI, denies burning, denies dysuria, denies discharge, denies frequency, denies flank pain, denies hematuria, denies incontinence, denies pain, denies urgency, denies other Musculoskeletal: denies no symptoms reported, denies see HPI, denies back pain, denies gout, denies joint pain, denies joint swelling, denies muscle pain, denies muscle stiffness, denies neck pain, denies other Skin: denies no symptoms reported, denies see HPI, denies change in color, denies change in hair/nails, denies dryness, denies lesions, denies lumps, denies rash, denies other Psychiatric/Neurological: denies no symptoms reported, denies see HPI, denies anxiety, denies depressed, denies emotional problems, denies headache, denies numbness, denies paresthesia, denies pre-existing deficit, denies seizure, denies tingling, denies tremors, denies weakness, denies other Endocrine: denies no symptoms reported, denies see HPI, denies excessive sweating, denies flushing, denies intolerance to cold, denies intolerance to heat, denies increased hunger, denies increased thrist, denies increased urine, denies unexplained weight gain, denies unexplaned weight loss, denies other Hematologic/Lymphatic: denies no symptoms reported, denies see HPI, denies anemia, denies blood clots, denies easy bleeding, denies easy bruising, denies swollen glands, denies other All Other Systems: Reviewed and Negative Past Medical History Medical History: hypertension Surgical History: no surgical history Social History Drug Use: none Physical Exam General Appearance: alert, no distress Eye: eyes nml inspection, lids & conjunct. nml, PERRL, no nystagmus Ear: ear nml Nose: nose nml Throat: pharynx nml, airway nml Neck: nml inspection, supple Respiratory: no resp.distress, breath sounds nml, rales (Crackles in the bases bilaterally) Abdomen: non-tender, no organomegaly CVS: reg rate & rhythm, heart sounds nml Skin: color nml, no rash, warm/dry Extremities: non-tender, nml ROM, no pedal edema NEURO/PSYCH: oriented x 3, CN's nml as tested, motor nml, sensation nml, mood/affect nml Results/Orders Results/Orders Orders - RIRI MARISCAL MD Covid19 Antigen Keeley Farhana (03/03/21 10:32) Xr Chest 1v (03/03/21 10:32) Influenza A&B (03/03/21 10:32) Vital Signs Date Time Temp Pulse Resp B/P (MAP) Pulse Ox O2 Delivery O2 Flow Rate FiO2 03/03/21 10:33 98.3 68 18 93 03/03/21 10:33 98.3 68 18 151/75 (100) 93 Room Air 03/03/21 10:33 98.3 68 18 Laboratory Tests Test 03/03/21 10:40 Influenza Type A Antigen NEGATIVE (NEG) Influenza Type B Antigen NEGATIVE (NEG) SARS-CoV-2 Antigen (Rapid) NEGATIVE (NEGATIVE) Progress Progress FINDINGS: LUNGS/PLEURA:Hyperinflation and chronic interstitial changes. No infiltrate or pleural effusion. CARDIAC:Normal cardiac silhouette and normal pulmonary vascularity. No azygos venous distention. Mild thoracic aortic calcification and tortuosity. MEDIASTINUM:Normal. BONES:Normal. OTHER:No additional findings. 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 No acute cardiopulmonary process or significant change. Dictated by: Erika Crawford MD on 03/03/2021 at 11:12 AM ER DEPART Departure Time of Disposition: 11:38 Disposition: HOME / SELF CARE / HOMELESS Impression: Primary Impression: Acute bronchitis Condition: Stable Patient Instructions: Acute Bronchitis Referrals: PIPER TALAVERA (PCP) PRIMARY CARE PROVIDER Additional Instructions: Acute bronchitis take antibiotics until all gone, if your symptoms worsen return to the emergency department. Comments Prescription for azithromycin and prednisone Duration or Time Spent with Pa: Unknown Problem Qualifiers Primary Impression: Acute bronchitis Bronchitis organism: unspecified organism Qualified Codes: J20.9 - Acute bronchitis, unspecified RIRI MARISCAL MD Mar 03, 2021 10:36
--- NOTE | 2021-03-03 11:16 | DIREP ---
PROCEDURE:CHEST 1 VIEW COMPARISON:[facility], CR, XRAY CHEST SINGLE VW, 01/21/2021, 11:55 AM. INDICATIONS:cough FINDINGS: LUNGS/PLEURA:Hyperinflation and chronic interstitial changes. No infiltrate or pleural effusion. CARDIAC:Normal cardiac silhouette and normal pulmonary vascularity. No azygos venous distention. Mild thoracic aortic calcification and tortuosity. MEDIASTINUM:Normal. BONES:Normal. OTHER:No additional findings. 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 No acute cardiopulmonary process or significant change. Dictated by: Erika Crawford MD on 03/03/2021 at 11:12 AM
[2021-03-03] MEDS ORDERED: ROCEPHIN IV STA (11:43)
[2021-03-03] MEDS ORDERED: ROCEPHIN ONE (11:57)
== END 2021-03-03 12:04 | disposition home or self-care (01) ==
LOC: ER 10:13
DX: J20.9 Acute bronchitis, unspecified (principal); I10 Essential (primary) hypertension; Z20.822 Contact with and (suspected) exposure to COVID-19
CPT/HCPCS: 71045; 87426; 87804 ×2; 96374; 99284; J0696

== ENCOUNTER 2021-04-01 09:50 | Observation (INO) | payer MEDICARE ==
[~2021-04-01] VITALS: Ht 181.6 cm; Wt 81.6 kg
[2021-04-01 10:03] VITALS: BP 148/84
--- NOTE | 2021-04-01 10:09 | NUR ---
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
[2021-04-01 10:28] LABS: BASOPHIL % 0.1 % (0.0-0.2); EOSINOPHIL % 0.2 % (0.0-5.0); LYMPHOCYTES # 1.89 10^3/uL1 (1.0-4.8); LYMPHOCYTES % 10.4 % (24.0-44.0); MONOCYTES # 1.2 10^3/uL (0.3-0.8); MONOCYTES % 6.4 % (5.0-12.0); NEUTROPHIL # 15.1 10^3/uL (1.8-7.7); NEUTROPHILS % 82.6 % (41.0-85.0); PLATELET COUNT 301 10^3/uL (150-400); RED CELL DISTRIBUTION WIDTH 13.9 % (11.5-14.5)
--- NOTE | 2021-04-01 10:38 | DIREP ---
PROCEDURE:CHEST 2 VIEWS COMPARISON:[facility], CR, XRAY CHEST SINGLE VW, 03/03/2021, 10:46 AM. [facility], CR, XRAY CHEST SINGLE VW, 01/21/2021, 11:55 AM. [facility], [place], XRAY CHEST 2 VWS, 04/14/2016, 12:46 PM. INDICATIONS:SOB FINDINGS: LUNGS/PLEURA:Upper lobe infiltrates, left greater than right. Findings in keeping with pneumonia. Effusion is not identified. No pneumothorax VASCULATURE:Normal. Unremarkable pulmonary vasculature. CARDIAC:Normal. No cardiac silhouette abnormality or cardiomegaly. MEDIASTINUM:Atherosclerotic changes aortic arch BONES:Degenerative changes of the shoulders OTHER:Negative. CONCLUSION:Upper lobe infiltrates, especially on the left. Findings in keeping with pneumonia. Dictated by: Benietz Young MD on 04/01/2021 at 10:34 AM
--- NOTE | 2021-04-01 10:43 | PCM.EKG ---
[facility] Test Date: 2021-04-01 Test Time: 10:37:35 Pat Name: TEENA DYER Department: Room: 331 Gender: M Public Defender: LETITIA : 1940 Requested By: CASIE TOPETE Order Number: [id number] Reading MD: Casie Topete Measurements Intervals [place] Rate: 84 P: 87 NC: 180 QRS: 74 QRSD: 106 T: 70 QT: 371 QTc: 439 Interpretive Statements Sinus arrhythmia Ventricular premature complex Minimal ST depression, anterolateral leads Compared to ECG 06/24/2020 12:01:08 Ventricular premature complex(es) now present Sinus rhythm no longer present ST (T wave) deviation still present Electronically Signed On 04-01-2021 17:17:38 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
[2021-04-01 10:50] LABS: CARBON DIOXIDE 26.6 mmol/L (20.0-32)
--- NOTE | 2021-04-01 10:52 | NUR ---
CRITICAL LAB TROP 229, REPORTED TO EDP.
[2021-04-01 11:17] VITALS: BP 122/72
[2021-04-01] MEDS ORDERED: FLUT1BLS3 INH (11:20)
[2021-04-01] MEDS ORDERED: ASPIRIN PO STA ×2 (11:20→12:46)
[2021-04-01] MEDS ORDERED: METO-236 PO (11:20)
--- NOTE | 2021-04-01 11:21 | NUR ---
CHICHI DOCTOR EFREM ATTEMPTED TO CALL DOCTOR CHICHI, LEFT MESSAGE
[2021-04-01] MEDS ORDERED: LEVAQUIN 100 ML IV ONE (11:30)
[2021-04-01] MEDS ORDERED: ASPIRIN ONE (11:36)
[2021-04-01] MEDS ORDERED: NS 100ML 100 ML IV ONE (11:36)
[2021-04-01] MEDS ORDERED: ROCEPHIN ONE (11:37)
--- NOTE | 2021-04-01 11:40 | NUR ---
CHICHI TOPETE ON THE PHONE WITH DOCTOR CADET AT THIS TIME. OKAY TO CONSULT.
--- NOTE | 2021-04-01 11:41 | NUR ---
SAHIL TOPETE ON THE PHONE WITH DOCTOR BAXTER AT THIS TIME.
[2021-04-01] MEDS: NS 1000ML 1,000 ML IV SCH ×2 (11:46→19:30)
[2021-04-01] MEDS: ROCEPHIN 1,000 MG in NS 100ML 100 ML IV SCH (11:46)
--- NOTE | 2021-04-01 11:53 | ER.PDOC ---
General Chief Complaint: Dyspnea/Respdistress Stated Complaint: SOB,COUGH Time seen by MD: 11:48 Source: patient History of Present Illness Initial Comments 80-year-old male presents with shortness of breath. Onset 2 weeks ago. Recently diagnosed with bronchitis. Denies any significant cardiac or pulmonary history. Denies any history of asthma COPD. Stop smoking 2 weeks ago. No history of coronary disease. No vomiting or diarrhea. Shortness of breath is at rest. There is no pleuritic chest pain. Severity: mild Allergies: Coded Allergies: No Known Allergies (Unverified , 03/25/13) Home Meds Reported Medications Fluticasone/Umeclidin/Vilanter (Trelegy Ellipta 100-62.5-25) 100-62.5 Blst.w.dev, 1 PUFF INH QD 04/01/21 Metoprolol Succinate (METOPROLOL SUCCINATE) 25 Mg Tab.er.24h, 1 TAB PO QD 04/01/21 Calcium/Mag Oxide/Vitamin D3 (CORAL CALCIUM 1,000 MG CAP) 1 Each Capsule, 1 EACH PO, CAPSULE 12/17/13 Cholecalciferol (Vitamin D3) (VITAMIN D) 1,000 Unit Capsule, 1 CAP PO DAILY, #30 CAP 3 Refills 12/17/13 Vitamin B Complex (B COMPLEX) 1 Each Tablet, 1 EACH PO DAILY, TABLET 12/17/13 [honeyand vinegar] No Conflict Check, 1 DAILY 12/17/13 Multivitamin W/Iron, Minerals (CENTRAL CRISTIAN FOR SENIORS) 1 Each Tablet, 1 EACH PO DAILY, TABLET 12/17/13 Past Medical History Medical History: hypertension Surgical History: no surgical history Social History Alcohol Use: none Drug Use: none Review of Systems Constitutional: no symptoms reported EENTM: no symptoms reported Respiratory: shortness of breath Cardiovascular: no symptoms reported Gastrointestinal: no symptoms reported Genitourinary: no symptoms reported Musculoskeletal: no symptoms reported Skin: no symptoms reported Psychiatric/Neurological: no symptoms reported Physical Exam General Appearance: No Apparent Distress HEENT: PERRL/EOMI Neck: Non-Tender Respiratory: chest non-tender Cardiovascular: Normal Peripheral Pulses, Regular Rate, Rhythm Gastrointestinal: Normal Bowel Sounds Rectal: Normal Exam Extremities: Normal Range of Motion Skin: Normal Color Results/Orders Results/Orders Orders - CASIE TOPETE MD Cbc With Auto Diff (04/01/21 10:11) Comprehensive Metabolic Panel (04/01/21 10:11) Probnp B-Type It Consulting Director (04/01/21 10:11) Ekg-Routine (04/01/21 10:11) Troponin I High Sensitivity (04/01/21 10:11) Xr Chest 2v (04/01/21 10:11) Covid19 Antigen Keeley Farhana (04/01/21 10:16) Ceftriaxone Sodium (Rocephin) (04/01/21 11:30) Levofloxacin 500mg/D5w 100ml (Levaquin) (04/01/21 11:30) 0.9 % Sodium Chloride (Ns 1000ml) (04/01/21 11:30) Aspirin (Aspirin) (04/01/21 11:20) 0.9 % Sodium Chloride (Ns 100ml) (04/01/21 11:36) Ceftriaxone Sodium (Rocephin) (04/01/21 11:37) Azithromycin (Zithromax) (04/01/21 12:00) Vital Signs Date Time Temp Pulse Resp B/P (MAP) Pulse Ox O2 Delivery O2 Flow Rate FiO2 04/01/21 11:17 98.1 87 24 122/72 (89) 93 Room Air 04/01/21 10:03 98.1 98 24 04/01/21 10:03 98.1 98 24 96 04/01/21 10:03 98.1 98 24 148/84 (105) 96 Room Air Laboratory Tests Test 04/01/21 10:23 04/01/21 10:41 White Blood Count 18.2 10^3/uL (4.5-11.0) H Red Blood Count 4.26 10^6/uL (4.50-5.90) L Hemoglobin 12.8 g/dL (13.9-16.3) L Hematocrit 39.0 % (37.0-53.0) Mean Corpuscular Volume 91.5 fL (78-100) Mean Corpuscular Hemoglobin 30.0 pg (26-34) Mean Corpuscular Hemoglobin Concent 32.8 g/dL (33-36.5) L Red Cell Distribution Width 13.9 % (11.5-14.5) Platelet Count 301 10^3/uL (150-400) Mean Platelet Volume 9.1 fL (7.8-11.0) Neutrophils (%) (Auto) 82.6 % (41.0-85.0) Lymphocytes (%) (Auto) 10.4 % (24.0-44.0) L Monocytes (%) (Auto) 6.4 % (5.0-12.0) Neutrophils # (Auto) 15.1 10^3/uL (1.8-7.7) H Lymphocytes # (Auto) 1.89 10^3/uL1 (1.0-4.8) Monocytes # (Auto) 1.2 10^3/uL (0.3-0.8) H Absolute Immature Granulocyte (auto 0.05 10^3 u/L (0-2) Absolute Eosinophils (auto) 0.0 10^3/uL (0.0-0.2) Immature Granulocytes % 0.30 % (0.00-0.50) Eosinophils % 0.2 % (0.0-5.0) Basophils % 0.1 % (0.0-0.2) Basophils # 0.0 10^3/uL (0.0-0.1) Sodium Level 134 mmol/L (132-145) Potassium Level 3.3 mmol/L (3.6-5.2) L Chloride Level 100.0 mmol/L (96-109) Carbon Dioxide Level 26.6 mmol/L (20.0-32) Anion Gap 10.7 Blood Urea Nitrogen 14 mg/dL (7-18) Creatinine 1.18 mg/dL (0.59-1.40) Estimated GFR () 71.9 (>/=60) Est GFR (CKD-EPI)(Non-Afr [place]) 59.4 (>/=60) BUN/Creatinine Ratio 11.0 Glucose Level 113 mg/dL (70-110) H Calcium Level 8.5 mg/dL (8.4-10.5) Total Bilirubin 0.5 mg/dL (0.2-1.0) Aspartate Amino Transferase (AST) 55 U/L (0-35) H Alanine Aminotransferase (ALT) 54 U/L (12-78) Alkaline Phosphatase 95 U/L (50-136) Troponin I High Sensitivity 225 ng/L (0-75) *H Pro-B-Type Natriuretic Peptide 2544 pg/mL (0-450) H Total Protein 7.2 g/dL (6.4-8.2) Albumin 2.6 g/dL (3.4-5.0) L Globulin 4.6 Albumin/Globulin Ratio 0.565 SARS-CoV-2 Antigen (Rapid) NEGATIVE (NEGATIVE) ER DEPART Departure Time of Disposition: 11:51 Disposition: 09 ADMITTED INPATIENT Impression: Primary Impression: Pneumonia Additional Impressions: Elevated troponin Elevated brain natriuretic peptide (BNP) level Condition: Stable Referrals: PIPER TALAVERA (PCP) PRIMARY CARE PROVIDER Duration or Time Spent with Pa: 15 Return to Work/School Can a patient return to work?: Yes Can a patient return to school: Yes Problem Qualifiers CASIE TOPETE MD Apr 01, 2021 11:53
[2021-04-01] MEDS ORDERED: ZITHROMAX 500 MG in NS 250ML 250 ML IV SCH (12:00)
[2021-04-01 12:09] VITALS: BP 127/85
[2021-04-01] MEDS ORDERED: LASIX IV STA (12:26)
--- NOTE | 2021-04-01 12:40 | NUR ---
ARRIVAL PATIENT ARRIVED ON MED-SURG UNIT AT THIS TIME. RECEIVED REPORT, ASSUMED CARE FOR PATIENT AT THIS TIME.
[2021-04-01] MEDS ORDERED: TYLENOL PO PRN (13:00)
[2021-04-01] MEDS ORDERED: KCL 20MEQ/100ML 100 ML IV ONE (13:00)
--- NOTE | 2021-04-01 13:11 | PCM.HP ---
History of Present Illness Hx of Present Illness 80-year-old male with history of hypertension, smoking, reactive airway disease who presents with progressively worsening shortness of breath he was seen in the ER here approximately 1 month ago diagnosed with bronchitis treated with ceftriaxone IM as well as outpatient antibiotics he sees Gene Leong in [facility] as his PCP. Reports that he has smoked since he was 10 years old but quit approximately 1 month ago. 2 months ago he was in the ER and was also diagnosed with acute bronchitis treated with prednisone, albuterol inhaler and azithromycin. Reviewed previous chest x-rays that shows findings consistent with COPD which fits his long smoking history for 60 years. Patient denied any chest pain in the ER just shortness of breath troponin mildly elevated at 225 with no acute ischemic changes reported on EKG proBNP elevated at 2544 potassium slightly low at 3.3 Echocardiogram has been ordered patient was treated with antibiotics in the ER for community-acquired pneumonia and case was discussed with cardiology Dr. Can by the ER physician. WBC 18 93% on room air. Patient denies any known cardiac history he denies ever having seen a sewage disposal worker or having any testing done on his heart Chest x-ray FINDINGS: LUNGS/PLEURA:Upper lobe infiltrates, left greater than right. Findings in keeping with pneumonia. Effusion is not identified. No pneumothorax VASCULATURE:Normal. Unremarkable pulmonary vasculature. CARDIAC:Normal. No cardiac silhouette abnormality or cardiomegaly. MEDIASTINUM:Atherosclerotic changes aortic arch BONES:Degenerative changes of the shoulders OTHER:Negative. CONCLUSION:Upper lobe infiltrates, especially on the left. Findings in keeping with pneumonia. Travel History [place] RISK:Travel to/contact w: No Review of Systems Constitutional: No: Fever, Chills, Sweats, Weakness, Malaise, Other Eyes: No: Pain, Vision change, Conjunctivae inflammation, Eyelid inflammation, Other, Redness ENT: No: Ear pain, Ear discharge, Nose pain, Nose discharge, Nose congestion, Mouth pain, Mouth swelling, Throat pain, Throat swelling, Other Respiratory: Cough, Shortness of breath, SOB with excertion Cardiovascular: No: Chest Pain, Palpitations, Orthopnea, Paroxysmal Noc. Dyspnea, Edema, Lt Headedness, Other Gastrointestinal: No: Nausea, Vomiting, Abdominal Pain, Diarrhea, Constipation, Melena, Hematochezia, Other Genitourinary: No Dysuria, No Frequency, No Incontinence, No Hematuria, No Retention, No Other Musculoskeletal: No: other, neck pain, shoulder pain, arm pain, back pain, hand pain, leg pain, foot pain Skin: No: Rash, Lesions, Jaundice, Bruising, Other Neurological: No: Weakness, Numbness, Incoordination, Change in speech, Confusion, Seizures, Other Allergies: Coded Allergies: No Known Allergies (Unverified , 03/25/13) Scheduled Cholecalciferol (Vitamin D3) (Vitamin D), 1 CAP PO DAILY, (Reported) Fluticasone/Umeclidin/Vilanter (Trelegy Ellipta 100-62.5-25), 1 PUFF INH QD, (Reported) Metoprolol Succinate (Metoprolol Succinate), 1 TAB PO QD, (Reported) Multivitamin W/Iron, Minerals ([facility]), 1 EACH PO DAILY, (Reported) Vitamin B Complex (B Complex), 1 EACH PO DAILY, (Reported) [honeyand vinegar], 1 DAILY, (Reported) Miscellaneous Medications Calcium/Mag Oxide/Vitamin D3 (Coral Calcium 1,000 Mg Cap), 1 EACH PO, (Reported) VTE VTE Risk Score VTE Risk: Score 0-1 = Low Risk (Aggressive mobilization; early ambulation; no VTE prophylaxis required) Score 2: Moderate Risk (Intermittent/Pneumatic Compression Device OR Lovenox/Heparin/Coumadin) Score 3-4: High Risk (Intermittent/Pneumatic Compression Device AND Lovenox/Heparin/Coumadin) Score > or =5: Highest Risk (Intermittent/Pneumatic Compression Device AND Lovenox/Heparin/Coumadin) Antico:Hep/LMWH/Coum/Xarelto: Yes Mechanical device ordered: Yes Exam Vital Signs Vital Signs Date Time Temp Pulse Resp B/P (MAP) Pulse Ox O2 Delivery O2 Flow Rate FiO2 04/01/21 12:09 98.1 85 24 127/85 (99) 93 Room Air General Appearance: Alert, Oriented X3 HEENT: Atraumatic, PERRLA Respiratory: Other (Globally diminished breath sounds throughout all lung cho consistent with COPD) Cardiovascular: Regular rate Abdominal: Normal bowel sounds Extremities: No clubbing, No cyanosis Skin: No breakdown Neuro: Normal gait, Normal speech, Strength at 5/5 X4 ext, Sensation intact, Cranial nerves 3-12 NL Psych/Mental Status: Mood NL Assessment/Plan Assessment/Plan Assessment/Plan 80-year-old male with history of hypertension, smoking, reactive airway disease who presents with progressively worsening shortness of breath he was seen in the ER here approximately 1 month ago diagnosed with bronchitis treated with ceftriaxone IM as well as outpatient antibiotics he sees Gene Leong in [facility] as his PCP. Reports that he has smoked since he was 10 years old but quit approximately 1 month ago. 2 months ago he was in the ER and was also diagnosed with acute bronchitis treated with prednisone, albuterol inhaler and azithromycin. Reviewed previous chest x-rays that shows findings consistent with COPD which fits his long smoking history for 60 years. Patient denied any chest pain in the ER just shortness of breath troponin mildly elevated at 225 with no acute ischemic changes reported on EKG proBNP elevated at 2544 potassium slightly low at 3.3 Echocardiogram has been ordered patient was treated with antibiotics in the ER for community-acquired pneumonia and case was discussed with cardiology Dr. Can by the ER physician. WBC 18 93% on room air. Pneumonia Azithromycin, ceftriaxone COPD Breathing treatments, steroids Elevated troponin No chest pain currently no acute ischemic changes on EKG trend troponins aspirin echocardiogram cardiology consult Elevated BNP Possibly because of dyspnea echocardiogram pending Hypertension Patient does not recall what blood pressure medicine he is on will restart when appropriate Prophylaxis Protonix, enoxaparin, SCDs, Patient wishes to be DNR Patient History: No Family History of: Alzheimer's disease Asthma Cerebrovascular disorder Chronic obstructive pulmonary disease Congestive heart failure Diabetes insipidus Diabetes mellitus Hypertension Parkinson's disease JULIANO BAXTER MD Apr 01, 2021 13:10
[2021-04-01] MEDS ORDERED: VENTOLIN IH PRN (13:30)
[2021-04-01] MEDS ORDERED: LASIX ONE ×2 (14:05→14:43)
[2021-04-01] MEDS: LOVENOX SQ SCH (14:56)
--- NOTE | 2021-04-01 15:00 | PCM.ECHO ---
APPROVED REPORT EXAM: Comprehensive 2D, Doppler, and color-flow Echocardiogram. Patient Location: IN-PATIENT Indications Congestive Heart Failure 2D Dimensions LVOT Diameter 2.04 (1.8-2.4cm) LVEF(%) 58.65 (>50%) M-Mode Dimensions RVDd 0.50 (2.1-3.2cm) Left Atrium(MM) 2.80 (2.5-4.0cm) IVSd 1.15 (0.7-1.1cm) Aortic Root 3.10 (2.2-3.7cm) LVDd 6.75 (4.0-5.6cm) Aortic Cusp Exc 1.50 (1.5-2.0cm) PWd 0.80 (0.7-1.1cm) MV EPSS 2.65 (<0.5cm) IVSs 1.50 cm FS (%) 24.10 % LVDs 5.10 (2.0-3.8cm) ESV(Teich) 125.79 ml PWs 1.05 cm LVEF(%) 46.87 (>50%) Volumes Biplane 2D LV Volumes Biplane 2D LA Volumes LVEDv A4C 156.73 mL LA ESV Index LVESv A4C 64.81 mL Aortic Valve AoV Peak Dennis. 1.80 m/s AoV VTI 33.30 cm AO Peak GR. 12.95 mmHg AO Mean GR. 7.80 mmHg LVOT VTI 17.86 cm LVOT Peak Dennis. 0.79 m/s MARIA ANTONIA(VTI)/BSA 1.75 cm2/m2 MARIA ANTONIA (VTI) 1.75 cm2 AI P 1/2 Time 586.80 ms Mitral Valve MV E Velocity 0.95m/s MR Peak Gr. 26.50mmHg MV A Velocity 1.20m/s TDI Lateral E' P. V 0.11m/s Medial E' P. V 0.09m/s LEFT VENTRICLE The left ventricle is normal size. The left ventricular systolic function is normal. The left ventricular ejection fraction is within the normal range. There is normal left ventricular wall thickness. There is normal LV segmental wall motion. E/A reversal consistent with Stage 1 Diastolic Dysfunction. There is no ventricular septal defect visualized. No left ventricle thrombus noted on this study. LVEF is 55-60%. RIGHT VENTRICLE The right ventricle is normal size. The right ventricular systolic function is normal. There is normal right ventricular wall thickness. ATRIA The left atrium size is normal. The right atrium size is normal. Interatrial septum is intact without evidence of ASD or PFO. AORTIC VALVE The aortic valve is normal in structure. Mild aortic stenosis. Moderate to severe aortic regurgitation There is no aortic valvular vegetation. MITRAL VALVE The mitral valve is normal in structure. There is no mitral valve stenosis. Mild to moderate mitral regurgitation. There is no evidence of mitral valve vegetations. TRICUSPID VALVE The tricuspid valve is normal in structure. There is no tricuspid valve stenosis. Mild tricuspid regurgitation. There is no tricuspid valve vegetations. PULMONIC VALVE Pulmonic valve is not well visualized. GREAT VESSELS The aortic root is normal in size. Pulmonary artery is not well visualized. Aortic arch is not well visualized. The IVC is normal in size and collapses >50% with inspiration. PERICARDIUM There is no pericardial effusion. There is no pleural effusion. Other Information Study Quality: Fair <Conclusion> The left ventricular systolic function is normal. LVEF is 55-60%. E/A reversal consistent with Stage 1 Diastolic Dysfunction. Mild aortic stenosis. Moderate to severe aortic regurgitation Mild to moderate mitral regurgitation. Mild tricuspid regurgitation. Electronically signed by : LINA CADET. 04/01/2021 14:59:51
[2021-04-01 15:54] VITALS: BP 128/79
[2021-04-01 20:23] LABS: BILIRUBIN,URINE NEGATIVE (NEGATIVE); UROBILINOGEN,URINE 0.2 E.U./dL (0.2)
[2021-04-01] MEDS ORDERED: LOPRESSER PO SCH (21:00)
[2021-04-01 21:28] VITALS: BP 151/62
--- NOTE | 2021-04-01 23:24 | CNH ---
DATE OF CONSULTATION: 04/01/2021 DICTATOR NAME: LINA CADET DO REASON FOR CONSULTATION: Acute decompensated heart failure. HISTORY OF PRESENT ILLNESS: This is an 80-year-old male who presented to the Emergency Room with progressively worsening shortness of breath with orthopnea and paroxysmal nocturnal dyspnea that he has been experiencing for the last 1 month. Upon presentation to the Emergency Room, his proBNP was noted to be significantly elevated at 2544. High-sensitive troponin was noted to be 225, which has slowly trended down to 219. A consultation was placed to Cardiology Service for evaluation for acute decompensated heart failure. Of note, his chest x-ray showed upper lobe infiltrates especially worse on the left. He is currently on broad-spectrum antibiotics and his pneumonia is currently being managed by the hospitalist team. PAST MEDICAL HISTORY: Significant for; 1. Hypertension. 2. COPD. PAST SURGICAL HISTORY: He denies any surgical history. ALLERGIES: He has no known drug allergies. MEDICATIONS: He takes at home includes: 1. Metoprolol succinate 25 mg p.o. daily. 2. Multivitamins. SOCIAL HISTORY: He admits to tobacco abuse. He smokes 1 pack of cigarettes a day for the last 60 years. He denies alcohol use, denies illicit drug use. FAMILY HISTORY: Denies any family history of premature coronary artery disease or sudden cardiac . REVIEW OF SYSTEMS: As per HPI and as per ER notes, all systems are reviewed and negative for interval change. PHYSICAL EXAMINATION: VITAL SIGNS: Blood pressure is 128/79, respiratory rate is 23, pulse is 76, temperature is 98.1, pulse oximetry 95% on nasal cannula at 1 liter. GENERAL: He is in no apparent distress, alert and oriented x 3. HEENT: Normocephalic, atraumatic. Extraocular muscles intact. Pupils equally round, reactive to light and accommodation. CARDIAC: S1, S2 plus 3/6 holosystolic murmur. No gallops, rubs or clicks. LUNGS: Decreased breath sounds bilaterally. No wheezing, rhonchi or rales. ABDOMEN: Soft, nontender, nondistended. Positive bowel sounds in all 4 quadrants. EXTREMITIES: No cyanosis, no clubbing, no edema, +2 pedal pulses palpable bilaterally. NEUROLOGIC: No neurological deficits. Sensation is intact. IMPRESSION: 1. Acute decompensated heart failure secondary to unknown etiology at this time. 2. Hypertension. 3. Chronic obstructive pulmonary disease. 4. Do not resuscitate. RECOMMENDATIONS: This is an 80-year-old male who presented to the Emergency Room with progressively worsening shortness of breath with orthopnea and paroxysmal nocturnal dyspnea that he has been experiencing for the last 1 month. His proBNP was noted to be significantly elevated and a diagnosis of acute decompensated heart failure was made. At this time, I am going to start him on Lasix 40 mg IV daily as well as lisinopril 10 mg p.o. daily. He would also be started on metoprolol tartrate 25 mg p.o. b.i.d. I would recommend strict I's and O's, daily weights, fluid restriction to 1 liter a day as well as sodium restriction. A 2D echo will be obtained to evaluate his left ventricular ejection fraction and structural integrity of his heart. Of note, his chest x-ray shows upper lobe pneumonia with left worse than the right. He is currently on broad-spectrum antibiotics, which is currently being managed by the hospitalist team. High-sensitive troponin was initially noted to be 225, but has slowly trended down to 219. He will be kept on telemetry at this time. Further recommendations will be made based on his overall clinical course on the findings from 2D echo. Suraj DAVIS D.O. DR: SABINA MEDEL: [id number] RECEIPT: [id number]
[2021-04-02 01:00] VITALS: BP 144/77
[2021-04-02 04:00] VITALS: BP 125/67
[2021-04-02] MEDS ORDERED: TOPROL XL PO SCH (05:30)
[2021-04-02 05:31] LABS: BASOPHIL % 0.3 % (0.0-0.2); EOSINOPHIL # 0.2 10^3/uL (0.0-0.2); EOSINOPHIL % 1.5 % (0.0-5.0); LYMPHOCYTES # 1.93 10^3/uL1 (1.0-4.8); MEAN CORP HGB 30.2 pg (26-34); MONOCYTES % 6.6 % (5.0-12.0); NEUTROPHIL # 11.6 10^3/uL (1.8-7.7); NEUTROPHILS % 78.6 % (41.0-85.0); PLATELET COUNT 311 10^3/uL (150-400); RED CELL DISTRIBUTION WIDTH 13.9 % (11.5-14.5)
[2021-04-02 06:04] LABS: CARBON DIOXIDE 24.3 mmol/L (20.0-32)
[2021-04-02 08:00] VITALS: BP 131/53
[2021-04-02] MEDS ORDERED: SOLU-MEDROL IV SCH (09:00)
[2021-04-02] MEDS ORDERED: LASIX IV SCH (09:00)
[2021-04-02] MEDS ORDERED: ASPIRIN EC PO SCH (09:00)
[2021-04-02] MEDS ORDERED: PROTONIX IV IV SCH (09:00)
[2021-04-02] MEDS ORDERED: VITAMIN D PO SCH (09:00)
[2021-04-02] MEDS ORDERED: VITAMIN B-COMPLEX WITH VIT C PO SCH (09:00)
[2021-04-02] MEDS ORDERED: KLOR-CON 10 PO SCH (09:00)
[2021-04-02] MEDS ORDERED: THERA PO SCH (09:00)
[2021-04-02] MEDS ORDERED: ZESTRIL PO SCH (09:00)
[2021-04-02] MEDS ORDERED: KCL 20MEQ/100ML 100 ML IV STA (09:08)
[2021-04-02] MEDS ORDERED: KLOR-CON 10 PO ONE (09:30)
[2021-04-02] MEDS: ROCEPHIN 1,000 MG in NS 100ML 100 ML IV SCH (11:30)
--- NOTE | 2021-04-02 12:46 | PRM.DC ---
Discharge Summary Date of Discharge: Apr 02, 2021 Time of Request to Discharge: 12:35 Hospital Course Patient is an 80-year-old male with past medical history of COPD and hyperten guerda who was admitted for elevated troponin, pneumonia with elevated WBC of 18 that trended down to 14. Upon admission patient troponin was elevated to 25 and started to trend down to 04/05 and 03/18/1990 today. Denies chest pain. He was noted to have potassium of 2.8 after he was started on Lasix/diuretics. Cardiology was consulted who came to evaluate patient and recommended darin landrum. During the hospital stay patient was started on IV antibiotic. Patient is stable and doing well cardiology is okay for patient to be discharged and follow-up outpatient with cardiology. Patient will be discharged on Levaquin, Lasix, beta-roxana and MELVIN inhibitor. E Patient History: No Family History of: Alzheimer's disease Asthma Cerebrovascular disorder Chronic obstructive pulmonary disease Congestive heart failure Diabetes insipidus Diabetes mellitus Hypertension Parkinson's disease General: Alert, Oriented X3, Cooperative, No acute distress HEENT: Atraumatic, PERRLA, EOMI Neck: Supple, No JVD, No thyromegaly Lungs: Clear to auscultation, Normal air movement Heart: Regular rate, Normal S1, Normal S2 Abdomen: Normal bowel sounds, Soft, No tenderness Extremities: No clubbing, No cyanosis, No edema Skin: No rashes, No breakdown, No significant lesion Neuro: Normal gait, Normal speech, Strength at 5/5 X4 ext Psych/Mental Status: Mental status NL Scheduled Cholecalciferol (Vitamin D3) (Vitamin D), 1 CAP PO DAILY, (Reported) Fluticasone/Umeclidin/Vilanter (Trelegy Ellipta 100-62.5-25), 1 PUFF INH QD, (Reported) Metoprolol Succinate (Metoprolol Succinate), 1 TAB PO QD, (Reported) Multivitamin W/Iron, Minerals ([facility]), 1 EACH PO DAILY, (Reported) Vitamin B Complex (B Complex), 1 EACH PO DAILY, (Reported) [honeyand vinegar], 1 DAILY, (Reported) Miscellaneous Medications Calcium/Mag Oxide/Vitamin D3 (Coral Calcium 1,000 Mg Cap), 1 EACH PO, (Reported) Sepsis Evaluation @ Discharge 04/01/21 21:00 Course Sepsis Screening Results: Posi: POSITIVE Sepsis Qualifier/Stage: SEPSIS RISK Duration or Total Time Spent w: 15 Vitals & review Data Vital Sign - Last 24 Hours 04/01/21 04/01/21 04/01/21 04/01/21 12:49 14:55 15:54 17:49 Temp 98.1 Pulse 76 Resp 23 B/P (MAP) 127/85 128/79 (95) Pulse Ox 95 O2 Delivery Nasal Cannula Nasal Cannula O2 Flow Rate 1.00 1.00 04/01/21 04/01/21 04/02/21 04/02/21 20:34 21:28 01:00 03:10 Temp 99.4 99.0 Pulse 89 61 80 Resp 22 20 B/P (MAP) 153/77 151/62 (91) 144/77 (99) Pulse Ox 93 93 O2 Delivery Room Air 04/02/21 04/02/21 04/02/21 04:00 09:22 09:23 Temp 99.0 Pulse 83 Resp 16 B/P (MAP) 125/67 (86) 132/63 132/63 Pulse Ox 93 O2 Delivery Room Air Intake and Output 04/02/21 07:00 Output Total 1900 ml Balance -1900 ml Laboratory Tests Test 04/01/21 10:23 04/01/21 10:41 04/01/21 14:00 04/01/21 17:10 White Blood Count 18.2 10^3/uL Red Blood Count 4.26 10^6/uL Hemoglobin 12.8 g/dL Hematocrit 39.0 % Mean Corpuscular Volume 91.5 fL Mean Corpuscular Hemoglobin 30.0 pg Mean Corpuscular Hemoglobin Concent 32.8 g/dL Red Cell Distribution Width 13.9 % Platelet Count 301 10^3/uL Mean Platelet Volume 9.1 fL Neutrophils (%) (Auto) 82.6 % Lymphocytes (%) (Auto) 10.4 % Monocytes (%) (Auto) 6.4 % Neutrophils # (Auto) 15.1 10^3/uL Lymphocytes # (Auto) 1.89 10^3/uL1 Monocytes # (Auto) 1.2 10^3/uL Absolute Immature Granulocyte (auto 0.05 10^3 u/L Absolute Eosinophils (auto) 0.0 10^3/uL Immature Granulocytes % 0.30 % Eosinophils % 0.2 % Basophils % 0.1 % Basophils # 0.0 10^3/uL Sodium Level 134 mmol/L Potassium Level 3.3 mmol/L Chloride Level 100.0 mmol/L Carbon Dioxide Level 26.6 mmol/L Anion Gap 10.7 Blood Urea Nitrogen 14 mg/dL Creatinine 1.18 mg/dL Estimated GFR () 71.9 Est GFR (CKD-EPI)(Non-Afr Stateless) 59.4 BUN/Creatinine Ratio 11.0 Glucose Level 113 mg/dL Calcium Level 8.5 mg/dL Total Bilirubin 0.5 mg/dL Aspartate Amino Transf (AST/SGOT) 55 U/L Alanine Aminotransferase (ALT/SGPT) 54 U/L Alkaline Phosphatase 95 U/L Troponin I High Sensitivity 225 ng/L 219 ng/L Pro-B-Type Natriuretic Peptide 2544 pg/mL Total Protein 7.2 g/dL Albumin 2.6 g/dL Globulin 4.6 Albumin/Globulin Ratio 0.565 SARS-CoV-2 Antigen (Rapid) NEGATIVE Prothrombin Time 11.9 SEC Prothrombin Time INR (Non-Therap) 1.1 Activated Partial Thromboplast Time 26.5 SEC Urine Collection Type UNKNOWN Urine Color YELLOW Urine Appearance CLEAR Urine Bilirubin NEGATIVE Urine Ketones NEGATIVE Urine Specific Pitkin 1.010 Urine pH 5.0 Urine Protein NEGATIVE Urine Urobilinogen 0.2 E.U./dL Urine Nitrate NEGATIVE Urine Leukocyte Esterase NEGATIVE Urine Glucose (Auto)(UA) NEGATIVE Urine Blood NEGATIVE Test 04/01/21 19:57 04/02/21 04:39 Troponin I High Sensitivity 191 ng/L White Blood Count 14.8 10^3/uL Red Blood Count 3.78 10^6/uL Hemoglobin 11.4 g/dL Hematocrit 34.9 % Mean Corpuscular Volume 92.3 fL Mean Corpuscular Hemoglobin 30.2 pg Mean Corpuscular Hemoglobin Concent 32.7 g/dL Red Cell Distribution Width 13.9 % Platelet Count 311 10^3/uL Mean Platelet Volume 9.6 fL Neutrophils (%) (Auto) 78.6 % Lymphocytes (%) (Auto) 13.0 % Monocytes (%) (Auto) 6.6 % Neutrophils # (Auto) 11.6 10^3/uL Lymphocytes # (Auto) 1.93 10^3/uL1 Monocytes # (Auto) 1.0 10^3/uL Absolute Immature Granulocyte (auto 0.03 10^3 u/L Absolute Eosinophils (auto) 0.2 10^3/uL Immature Granulocytes % 0.20 % Eosinophils % 1.5 % Basophils % 0.3 % Basophils # 0.0 10^3/uL Sodium Level 138 mmol/L Potassium Level 2.8 mmol/L Chloride Level 102.0 mmol/L Carbon Dioxide Level 24.3 mmol/L Anion Gap 14.5 Blood Urea Nitrogen 15 mg/dL Creatinine 1.05 mg/dL Estimated GFR () 82.2 Est GFR (CKD-EPI)(Non-Afr Stateless) 68.0 BUN/Creatinine Ratio 14.0 Glucose Level 98 mg/dL Hemoglobin A1c 5.6 % Calcium Level 8.1 mg/dL Magnesium Level 1.9 mg/dL Total Bilirubin 0.5 mg/dL Aspartate Amino Transf (AST/SGOT) 68 U/L Alanine Aminotransferase (ALT/SGPT) 67 U/L Alkaline Phosphatase 89 U/L Total Protein 6.5 g/dL Albumin 2.3 g/dL Globulin 4.2 Albumin/Globulin Ratio 0.547 Triglycerides Level 69 mg/dL Cholesterol Level 114 mg/dL LDL Cholesterol, Calculated 80.2 VLDL Cholesterol, Calculated 13.8 HDL Cholesterol 20 mg/dL Cholesterol Ratio (LDL/HDL) 4.0 Cholesterol/HDL Ratio [id number] Current Medications Medications (Trade) Dose Ordered Sig/Antonino PRN Reason Start Time Stop Time Status Last Admin Acetaminophen (Tylenol) 500 mg Q6H PRN PAIN 1 - 3 04/01/21 13:00 05/01/21 12:59 Albuterol Sulfate (Ventolin) 2.5 mg RTQ4 PRN WHEEZING 04/01/21 13:30 05/01/21 13:29 Aspirin (Aspirin Ec) 81 mg DAILY 04/02/21 09:00 05/02/21 08:59 04/02/21 09:21 Azithromycin 500 mg/Sodium Chloride 250 ml @ 175 mls/hr Q24HRS 04/01/21 12:00 05/01/21 11:59 04/01/21 14:43 Ceftriaxone Sodium 1000 mg/ Sodium Chloride 100 ml @ 100 mls/hr Q24HRS 04/01/21 11:30 05/01/21 11:29 04/01/21 11:46 Cholecalciferol (Vitamin D) 1,000 unit DAILY 04/02/21 09:00 3/18/22 08:59 04/02/21 09:22 Cholecalciferol (Vitamin D) 1,000 unit DAILY 04/02/21 09:00 05/02/21 08:59 Enoxaparin Sodium (Lovenox) 40 mg Q24HRS 04/01/21 13:00 05/01/21 12:59 04/01/21 14:56 Furosemide (Lasix) 40 mg DAILY 04/02/21 09:00 05/02/21 08:59 04/02/21 09:23 Lisinopril (Zestril) 10 mg DAILY 04/02/21 09:00 05/02/21 08:59 04/02/21 09:22 Methylprednisolone Sodium Succinate (Solu-Medrol) 125 mg DAILY 04/02/21 09:00 04/09/21 08:59 04/02/21 09:22 Metoprolol Succinate (Toprol Xl) 25 mg QD 04/02/21 05:30 05/02/21 05:29 Pantoprazole Sodium (Protonix Iv) 40 mg DAILY 04/02/21 09:00 05/02/21 08:59 Potassium Chloride (Klor-Con 10) 20 meq DAILY 04/02/21 09:00 05/02/21 08:59 04/02/21 09:22 Sodium Chloride 1,000 ml @ 125 mls/hr Q8H 04/01/21 11:30 05/01/21 11:29 04/01/21 11:46 Sepsis Infection Criteria Pres: None LEVEL 1 SEPSIS INFECTION CRITE: ABX Therapy, Flu-Pneumonia LEVEL 2-SIRS (LIST ALL THAT AP: [id number] Cardiovascular Evidence: Not Assessed or None Hematologic Evidence: None/Not assessed Hepatic Evidence: None/Not assessed Metabolic Evidence: None/Not assessed Neurological Evidence: Altered Mental Status Respiratory Evidence: None/Not assessed Renal Evidence: None/Not assessed O2 Sat by Pulse Oximetry: 93 Oxygen Flow Rate: 1.00 Plan Assessment Elevated troponin Congestive heart failure Pneumonia Hypertension COPD Discharge Date: Apr 02, 2021 Discharge Disposition: Stable Plan Continue on home medications We will start patient on Levaquin 500 mg for pneumonia daily daily for 7 days. Metoprolol MELVIN inhibitor Lasix. 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 OSKAR LO MD Apr 02, 2021 12:46
[2021-04-02] MEDS: LOVENOX SQ SCH (13:30)
[2021-04-02 13:35] LABS: CARBON DIOXIDE 25.8 mmol/L (20.0-32)
--- NOTE | 2021-04-02 14:05 | NUR ---
DISCHARGE PLANNING CM VISITED WITH PATIENT AND SPOUSE ABOUT DISCHARGE PLANS AND NEEDS. PATIENT CURRENTLY LIVES HOME WITH [email or web address] WITH ALL ADL. PATIENT WILL FOLLOW UP WITH JODY ASHRAF [email or web address]. PATIENT DENIES HAVING OR NEEDING ANY DME. EDUCATED ON RESOURCES AVAILABLE AND PATIENT AND SPOUSE DENY NEEDS FOR ANY DME OR SERVICES PROVIDED. CM WILL CONTINUE TO FOLLOW THROUGH DISCHARGE.
[2021-04-02] MEDS ORDERED: LISI10TA20 PO (15:40)
[2021-04-02] MEDS ORDERED: POTA-148 PO (15:40)
[2021-04-02] MEDS ORDERED: FURO-80 PO (15:40)
[2021-04-02] MEDS ORDERED: LEVO500T9 PO (15:40)
[2021-04-02 16:38] VITALS: BP 135/68
--- NOTE | 2021-04-02 16:38 | NUR ---
Discharge Saline locked removed from RFA with cath intact. No active bleeding noted. Dressing applied. Written and verbal discharge instructions provided. Encouraged to take medications as directed. If symptoms persist or new symptoms of concern occur return to facility or follow up with PCP as soon as possible. Follow up with contract administration specialist as directed. Ambulated from bed to wheel chair. Transferred from wheel chair to passenger side of vehicle without assistance and without difficulty. states they will be picking up medication from pharmacy and then going home. Denies needs questions or concerns. No s/s of acute distress noted. GCS-15.
--- NOTE | 2021-04-02 21:53 | PRM.PN ---
Subjective Subjective Date: Apr 02, 2021 Time: 11:30 Subjective Patient resting comfortably No chest pain, SOB or palpitations Review of Systems Constitutional: No: Fever, Chills, Sweats, Weakness, Malaise, Other Eyes: No: Pain, Vision change, Conjunctivae inflammation, Eyelid inflammation, Other, Redness ENT: No: Ear pain, Ear discharge, Nose pain, Nose discharge, Nose congestion, Mouth pain, Mouth swelling, Throat pain, Throat swelling, Other Respiratory: No: Cough, Dry, Shortness of breath, SOB with excertion, Wheezing, Hemoptysis, Pleuritic Pain, Sputum, Wheezing, Other Cardiovascular: No: Chest Pain, Palpitations, Orthopnea, Paroxysmal Noc. Dyspnea, Edema, Lt Headedness, Other Gastrointestinal: No: Nausea, Vomiting, Abdominal Pain, Diarrhea, Constipation, Melena, Hematochezia, Other Genitourinary: No Dysuria, No Frequency, No Incontinence, No Hematuria, No Retention, No Other Musculoskeletal: No: other, neck pain, shoulder pain, arm pain, back pain, hand pain, leg pain, foot pain Skin: No: Rash, Lesions, Jaundice, Bruising, Other Neurological: No: Weakness, Numbness, Incoordination, Change in speech, Confusion, Seizures, Other Allergies: Coded Allergies: No Known Allergies (Unverified , 03/25/13) Scheduled Cholecalciferol (Vitamin D3) (Vitamin D), 1 CAP PO DAILY, (Reported) Fluticasone/Umeclidin/Vilanter (Trelegy Ellipta 100-62.5-25), 1 PUFF INH QD, (Reported) Furosemide (Lasix), 1 TAB PO QD Levofloxacin (Levaquin), 1 TAB PO DAILY Lisinopril (Lisinopril), 1 TAB PO DAILY Metoprolol Succinate (Metoprolol Succinate), 1 TAB PO QD, (Reported) Multivitamin W/Iron, Minerals ([employer] [place] [facility]), 1 EACH PO DAILY, (Reported) Potassium Chloride (Potassium Chloride), 1 TAB PO Qday Vitamin B Complex (B Complex), 1 EACH PO DAILY, (Reported) [honeyand vinegar], 1 DAILY, (Reported) Miscellaneous Medications Calcium/Mag Oxide/Vitamin D3 (Coral Calcium 1,000 Mg Cap), 1 EACH PO, (Reported) Objective Vitals and I/O Vital Sign - Last 24 Hours 04/02/21 04/02/21 04/02/21 04/02/21 01:00 03:10 04:00 08:00 Temp 99.0 99.0 97.6 Pulse 80 83 86 Resp 20 16 20 B/P (MAP) 144/77 (99) 125/67 (86) 131/53 (79) Pulse Ox 93 93 95 O2 Delivery Room Air Room Air Room Air 04/02/21 04/02/21 04/02/21 04/02/21 08:00 09:22 09:23 16:38 Temp 98.2 Pulse 67 Resp 18 B/P (MAP) 132/63 132/63 135/68 (90) Pulse Ox 95 O2 Delivery Room Air Room Air Intake and Output 04/02/21 06:59 Output Total 1900 ml Balance -1900 ml General: Alert, Oriented X3, Cooperative, No acute distress HEENT: Atraumatic, PERRLA, EOMI Neck: Supple, No JVD, No thyromegaly Lungs: Clear to auscultation, Normal air movement Heart: Regular rate, Normal S1, Normal S2 Abdomen: Normal bowel sounds, Soft, No tenderness Extremities: No clubbing, No cyanosis, No edema Skin: No rashes, No breakdown, No significant lesion Neuro: Normal gait, Normal speech, Strength at 5/5 X4 ext Psych/Mental Status: Mental status NL All Results(Lab/Rad) Laboratory Tests Test 04/02/21 04:39 04/02/21 13:04 White Blood Count 14.8 10^3/uL Red Blood Count 3.78 10^6/uL Hemoglobin 11.4 g/dL Hematocrit 34.9 % Mean Corpuscular Volume 92.3 fL Mean Corpuscular Hemoglobin 30.2 pg Mean Corpuscular Hemoglobin Concent 32.7 g/dL Red Cell Distribution Width 13.9 % Platelet Count 311 10^3/uL Mean Platelet Volume 9.6 fL Neutrophils (%) (Auto) 78.6 % Lymphocytes (%) (Auto) 13.0 % Monocytes (%) (Auto) 6.6 % Neutrophils # (Auto) 11.6 10^3/uL Lymphocytes # (Auto) 1.93 10^3/uL1 Monocytes # (Auto) 1.0 10^3/uL Absolute Immature Granulocyte (auto 0.03 10^3 u/L Absolute Eosinophils (auto) 0.2 10^3/uL Immature Granulocytes % 0.20 % Eosinophils % 1.5 % Basophils % 0.3 % Basophils # 0.0 10^3/uL Sodium Level 138 mmol/L 137 mmol/L Potassium Level 2.8 mmol/L 3.5 mmol/L Chloride Level 102.0 mmol/L 100.0 mmol/L Carbon Dioxide Level 24.3 mmol/L 25.8 mmol/L Anion Gap 14.5 14.7 Blood Urea Nitrogen 15 mg/dL 17 mg/dL Creatinine 1.05 mg/dL 1.10 mg/dL Estimated GFR () 82.2 77.9 Est GFR (CKD-EPI)(Non-Afr [place]) 68.0 64.4 BUN/Creatinine Ratio 14.0 15.0 Glucose Level 98 mg/dL 174 mg/dL Hemoglobin A1c 5.6 % Calcium Level 8.1 mg/dL 8.7 mg/dL Magnesium Level 1.9 mg/dL Total Bilirubin 0.5 mg/dL Aspartate Amino Transf (AST/SGOT) 68 U/L Alanine Aminotransferase (ALT/SGPT) 67 U/L Alkaline Phosphatase 89 U/L Total Protein 6.5 g/dL Albumin 2.3 g/dL Globulin 4.2 Albumin/Globulin Ratio 0.547 Triglycerides Level 69 mg/dL Cholesterol Level 114 mg/dL LDL Cholesterol, Calculated 80.2 VLDL Cholesterol, Calculated 13.8 HDL Cholesterol 20 mg/dL Cholesterol Ratio (LDL/HDL) 4.0 Cholesterol/HDL Ratio [id number] Current Medications Medications (Trade) Dose Ordered Sig/Antonino Route PRN Reason Start Time Stop Time Status Last Admin Dose Admin Ceftriaxone Sodium 1000 mg/ Sodium Chloride 100 ml @ 100 mls/hr Q24HRS IV 04/01/21 11:30 04/02/21 17:32 DC 04/02/21 11:30 Levofloxacin/ Dextrose 100 ml @ 100 mls/hr Q24HRS ONCE IV 04/01/21 11:30 04/01/21 11:44 DC Sodium Chloride 1,000 ml @ 125 mls/hr Q8H IV 04/01/21 11:30 04/02/21 17:32 DC 04/01/21 11:46 Aspirin (Aspirin) 324 mg STAT STAT PO 04/01/21 11:20 04/01/21 12:47 DC 2/15/22 11:46 Sodium Chloride 100 ml @ ud STK-MED ONCE IV 04/01/21 11:36 04/01/21 11:36 DC Ceftriaxone Sodium (Rocephin) 1,000 mg STK-MED ONCE .ROUTE 04/01/21 11:37 04/01/21 11:37 DC Azithromycin 500 mg/Sodium Chloride 250 ml @ 175 mls/hr Q24HRS IV 04/01/21 12:00 04/02/21 17:32 DC 04/01/21 14:43 Metoprolol Tartrate (Lopresser) 25 mg BID PO 04/01/21 21:00 04/02/21 05:35 DC 04/01/21 20:34 Lisinopril (Zestril) 10 mg DAILY PO 04/02/21 09:00 04/02/21 17:32 DC 04/02/21 09:22 Furosemide (Lasix) 40 mg DAILY IV 04/02/21 09:00 04/02/21 17:32 DC 04/02/21 09:23 Potassium Chloride (Klor-Con 10) 20 meq DAILY PO 04/02/21 09:00 04/02/21 17:32 DC 04/02/21 09:22 Furosemide (Lasix) 40 mg STAT STAT IV 04/01/21 12:26 04/01/21 12:47 DC 04/01/21 14:55 Aspirin (Aspirin) 325 mg STAT STAT PO 04/01/21 12:46 04/01/21 12:47 Cancel Aspirin (Aspirin) 81 mg STK-MED ONCE .ROUTE 04/01/21 11:36 04/01/21 12:47 DC Potassium Chloride 100 ml @ 50 mls/hr OT ONCE IV 04/01/21 13:00 04/01/21 14:59 DC 04/01/21 17:11 Enoxaparin Sodium (Lovenox) 40 mg Q24HRS SQ 04/01/21 13:00 04/02/21 17:32 DC 04/02/21 13:30 Aspirin (Aspirin Ec) 81 mg DAILY PO 04/02/21 09:00 04/02/21 17:32 DC 04/02/21 09:21 Pantoprazole Sodium (Protonix Iv) 40 mg DAILY IV 04/02/21 09:00 04/02/21 17:32 DC Acetaminophen (Tylenol) 500 mg Q6H PRN PO PAIN 1 - 3 04/01/21 13:00 04/02/21 17:32 DC Methylprednisolone Sodium Succinate (Solu-Medrol) 125 mg DAILY IV 04/02/21 09:00 04/02/21 17:32 DC 04/02/21 09:22 Albuterol Sulfate (Ventolin) 2.5 mg RTQ4 PRN IH WHEEZING 04/01/21 13:30 04/02/21 17:32 DC Furosemide (Lasix) 40 mg STK-MED ONCE .ROUTE 04/01/21 14:05 04/01/21 14:05 DC Furosemide (Lasix) 40 mg STK-MED ONCE .ROUTE 04/01/21 14:43 04/01/21 14:43 DC Metoprolol Succinate (Toprol Xl) 25 mg QD PO 04/02/21 05:30 04/02/21 17:32 DC Cholecalciferol (Vitamin D) 1,000 unit DAILY PO 04/02/21 09:00 04/02/21 17:32 DC 04/02/21 09:22 Cholecalciferol (Vitamin D) 1,000 unit DAILY PO 04/02/21 09:00 05/02/21 08:59 Potassium Chloride (Klor-Con 10) 20 meq STAT ONCE PO 04/02/21 09:30 04/02/21 09:31 DC 04/02/21 09:24 Potassium Chloride 100 ml @ 50 mls/hr OT STAT IV 04/02/21 09:08 04/02/21 11:07 DC 04/02/21 09:55 Assessment/Plan Assessment/Plan Assessment/Plan 1. Acute decompensated heart failure secondary to unknown etiology at this time. 2. Hypertension. 3. Chronic obstructive pulmonary disease. 4. Do not resuscitate. Patient is euvolemic Continue BB/MELVIN-inh/Diuretics LVEF 55-60% with no WMA on echo Troponins trending down No invasive cardiac w/up planned at this time Will sign off LINA CADET DO Apr 02, 2021 21:53
== END 2021-04-02 16:38 | disposition home or self-care (01) ==
LOC: ER 09:50 → UNDOADMOB 11:50 → INTOOBSV 11:50 → MS 11:50 → UNDODISOB 04-02 16:38
PROVIDERS: ADMIT Family Medicine; ATTEND Family Medicine
DX: J18.9 Pneumonia, unspecified organism (principal); Z20.822 Contact with and (suspected) exposure to COVID-19; I11.0 Hypertensive heart disease with heart failure; I50.9 Heart failure, unspecified; J44.9 Chronic obstructive pulmonary disease, unspecified; R79.89 Other specified abnormal findings of blood chemistry; Z79.899 Other long term (current) drug therapy; Z87.891 Personal history of nicotine dependence; Z66 Do not resuscitate
CPT/HCPCS: 36415 ×2; 71046; 80048; 80053 ×2; 80061; 81003; 83036; 83735; 83880; 84484; 85025 ×2; 85610; 85730; 87426; 93005; 93306; 96361 ×2; 96365; 96366 ×2; 96367; 96372 ×2; 96375 ×2; 96376; 99285; G0378 ×3; J0456 ×2; J0696; J1650 ×2; J1940 ×2; J2930; J3490; J7030 ×2; J7050 ×2; J3480